=== PATIENT | female | born 2000 | race Caucasian/White ===

== ENCOUNTER → 2019-12-19 14:51 | Outpatient (CLI) | payer BC, SELFPAY ==
--- NOTE | 2019-12-19 15:00 | US_ITS ---
PROCEDURE: US TRANSVAGINAL CLINICAL INDICATION: pelvic pain COMPARISON: ABDPELW/O CT ABD PELVIS W/O CONTRAST from 11/21/2014 FINDINGS: UTERUS: 7cm x 4cmx 3cm with a combined endometrial thickness of 2.3mm LEFT OVARY: [id number] with a volume of 2.6ml. RIGHT OVARY: [id number] with a volume of 5.9ml. Uterus has an unremarkable appearance. There is a 3.4 cm cystic lesion within the cul-de-sac. There does appear to be a small amount fluid in the cul-de-sac. IMPRESSION: 3.4 cm cystic lesion within the posterior cul-de-sac. This does not appear to be arising from ovary. MRI of the pelvis without and with gadolinium enhancement suggested for further evaluation. Dictated by: Quincy Llanos MD 12/19/2019 16:10 Electronically signed by Quincy Llanos MD in [place] 12/19/2019 16:10
== END ==
PROVIDERS: PCP Specialist; Visit Provider Nurse Practitioner Obstetrics & Gynecology
DX: R10.2 Pelvic and perineal pain (principal)
CPT/HCPCS: 76830

== ENCOUNTER → 2020-02-20 12:47 | Outpatient (CLI) | payer BC, SELFPAY ==
--- NOTE | 2020-02-20 12:48 | US_ITS ---
PROCEDURE: US TRANSVAGINAL CLINICAL INDICATION: ovarian cyst Follow-up ovarian cyst COMPARISON: CT ABDPELW/O CT ABD PELVIS W/O CONTRAST from 11/21/2014 US US TRANSVAGINAL from 12/19/2019 FINDINGS: UTERUS: 5cm x 4cmx 3cm with a combined endometrial thickness of 1.7mm LEFT OVARY: 3qiv3cjm9.5cm with a volume of 4.9ml. RIGHT OVARY: [id number] with a volume of 3.7ml. There is free fluid in the cul-de-sac. In addition, there is a persistent circumscribed simple cystic collection in the cul-de-sac at 3.4 x 2.7 cm not significantly changed. The ovaries have an unremarkable appearance with bilateral ovarian blood flow. IMPRESSION: Overall no change in the 3.4 cm simple appearing cyst in the cul-de-sac along with a small amount of free fluid in the cul-de-sac. Dictated by: Quincy Llanos MD 02/20/2020 18:02 Quincy Llanos MD in [place] 02/20/2020 18:02
== END ==
PROVIDERS: PCP Specialist; Visit Provider Nurse Practitioner Obstetrics & Gynecology
DX: N83.209 Unspecified ovarian cyst, unspecified side (principal)
CPT/HCPCS: 76830

== ENCOUNTER 2020-03-23 13:22 | Emergency (ER) | payer BC, SELFPAY ==
[2020-03-23 14:15] VITALS: BP 125/78; PULSE 91; RESP 18; TEMP 36.7; O2SAT 96; BMI 31.8
--- NOTE | 2020-03-23 14:24 | HMH.EDUTC ---
[facility] [place] Clinical Impression: Exposure to COVID-19 virus, Encounter for laboratory testing for COVID-19 virus Disposition: Home, Self-Care Condition on Discharge: Good Instructions: Preventing the Spread of Coronavirus Discharge Instructions Additional Instructions: *Monitor Temp, Over the counter Motrin or Tylenol as directed/as needed Tylenol every 4 hours and Motrin every 6 hours (as long as your family doctor has told you that you can take it) for fever or pain. and straight to ER if unable to lower temp less than 101.0 after medication given *Warm salt water gargles may help to soothe the throat *Throat Lozenges *Warm fluids like tea with honey may help to soothe the throat *Sleep elevated *Humidifier/Vaporizer Follow up IMMEDIATELY for new or worsening symptoms or no Noticeable improvement over the next 48-72 hours. 911 for difficulty breathing or swallowing You was tested for today for COVID19 your test result should be back later this evening, you may call back later this evening to see if your test results are back and the result You was given a handout with instructions for Self Quarantine and Self isolation for while you wait on test results and what to do if they are positive Referrals: David Bragg [Primary Care Provider] - As needed Time of Disposition: 14:27 Medical Decision Making - Jeremy Inquiry Pt receiving controlled substance: No Jeremy was queried for this patient: No Vital Signs: 03/23/20 14:15 Temperature 98.1 F Temperature Source Oral Pulse Rate [Radial] 91 H Respiratory Rate 18 Blood Pressure [Right Arm] 125/78 Blood Pressure Mean [Right Arm] 93 Blood Pressure Source [Right Arm] Automatic Cuff Blood Pressure Position [Right Arm] Sitting 02 Sat by Pulse Oximetry 96 Oxygen Delivery Method Room Air Orders (Tests/Meds): ORDERS Category Date Time Status Covid-19 Nasal PCR ([facility]) Routine Lab 03/23/20 13:45 Received [facility] [place] HPI - General Stated complaint: exposed to covid patient Time Seen by Provider: 03/23/20 14:24 Mode of Arrival: Ambulatory Source of Information: Patient Limitations: No Limitations Description of Symptoms (Recalled from Triage Doc. by RN): covid test, no symptoms HEENT Symptoms (Recalled from RN notes): No Resp Symptoms (Recalled from RN notes): No Skin Symptoms (Recalled from RN notes): No MS Symptoms (Recalled from RN notes): No Functional Status (Recalled from RN notes): wnl - History of Present Illness Provider Complaint: Patient states that she was recent exposed to someone that tested positive for COVID yesterday at her house States that she is not having any symptoms but wanted to get tested to be safe - Related Data Home Medications Medication Instructions Recorded Confirmed fluoxetine 20 mg capsule mg PO 06/26/19 12/14/19 norgestimate 0.25 mg-ethinyl tab PO 06/26/19 12/14/19 estradiol 35 mcg tablet sulfamethoxazole 800 1 tab PO tab 12/14/19 12/14/19 mg-trimethoprim 160 mg tablet Allergies Allergy/AdvReac Type Severity Reaction Status Date / Time No Known Allergies Allergy Verified 12/14/19 11:23 - Worker's Comp Is this a Worker's Comp case?: No [facility] History - Hepatitis A Screen Drug use history?: No High risk sexual behaviors?: No History of sexually transmitted infection?: No Currently employed?: No Childcare worker?: No Do you have indoor plumbing?: Yes Do you have electricity?: Yes Attestation statement:: This patient has been screened for Hepatitis A risk factors. I have reviewed the patient's past medical history: Yes Medical History: Reports:: Anxiety, Depression Other Surgeries: Yes: No Previous Surgery - Social History Smoking Status: Never smoker Alcohol Intake: never Substance Use Type: denies use Occupational Status: other Housing: house Household Members: family - Psychiatric History Pschychiatric History:: Reports:: Anxiety, Depression Family Hx:: Cancer, Diabetes, Hyp
[2020-03-23 14:41] VITALS: BP 125/78; PULSE 91; RESP 18; TEMP 36.7; O2SAT 96
== END 2020-03-23 14:42 | disposition home or self-care (01) ==
PROVIDERS: Emergency Provider Nurse Practitioner; PCP Specialist
DX: Z20.828 Contact with and (suspected) exposure to other viral communicable diseases (principal); F41.8 Other specified anxiety disorders
CPT/HCPCS: 99201; U0003

== ENCOUNTER → 2020-07-03 15:51 | Outpatient (CLI) | payer BC, SELFPAY ==
[2020-07-04 14:27] LABS: Basophils # 0.1 K/mm3 (0-0.2); Basophils % 0.8 % (0.1-2.0); Eosinophils # 0.2 K/mm3 (0.0-0.4); Eosinophils % 2.8 % (0.1-12.0); Hematocrit 43.2 % (37.0-47.0); Hemoglobin 14.1 g/dL (12.2-16.2); Lymphocytes # 1.7 K/mm3 (0.7-4.5); Lymphocytes % 26.7 % (10-50); Mean Corpuscular HGB Conc 32.6 g/dL (31.8-35.4); Mean Corpuscular Hemoglobin 29.9 pg (27.0-31.2); Mean Corpuscular Volume 91.9 fl (81-99); Mean Platelet Volume 8.9 fl (7.4-10.4); Monocytes # 0.2 K/mm3 (0.1-1.0); Monocytes % 2.9 % (1.7-9.3); Neutrophils # 4.4 K/mm3 (1.8-7.8); Neutrophils % 66.8 % (37.0-80.0); Platelet Count 404 K/mm3 (142-424); Red Blood Count 4.71 M/mm3 (4.20-5.40); Red Cell Distribution Width 13.7 % (11.5-17.5); White Blood Count 6.5 K/mm3 (4.5-13.0)
[2020-07-04 14:35] LABS: Chloride 103 mmol/L (98-107); Potassium 4.8 mmoL/L (3.5-5.1); Sodium 143 mmol/L (136-145)
[2020-07-04 14:37] LABS: Blood Urea Nitrogen 10 mg/dl (7-17); Estimated Glomerular Filt Rate 127 ml/min (>60); GFR (African American) 154 ML/MIN (>60)
[2020-07-04 14:38] LABS: Alanine Aminotransferase 22 U/L (12-78); Albumin Level 5.2 g/dl (3.5-5.0); Albumin/Globulin Ratio 1.5 (1.1-1.8); Alkaline Phosphatase 102 U/L (38-126); Anion Gap 15.8 mEq/L (5-15); Aspartate Amino Transferase 32 U/L (14-36); Bilirubin,Total 0.4 mg/dl (0.2-1.3); Calcium 10.2 mg/dl (8.4-10.2); Carbon Dioxide 29 mmol/L (22.0-30.0); Chol/HDL Ratio 4.8 (1-3.5); Cholesterol 191 mg/dl (140-200); Globulin 3.5 g/dL (1.3-3.2); Glucose 92 mg/dl (74-100); HDL Cholesterol 40 mg/dl (40-60); Total Protein,Serum 8.7 g/dl (6.3-8.2); Triglycerides 101 mg/dl (30-150); VLDL Cholesterol 20 mg/dL (0-40)
[2020-07-04 14:50] LABS: Direct LDL Cholesterol 100.52 mg/dL (100-129)
[2020-07-04 14:58] LABS: T4 (Thyroxine) 9.5 ug/dl (5.53-11.0)
[2020-07-04 15:09] LABS: Thyroid Stimulating Hormone 0.98 uIU/mL (0.465-4.68)
== END ==
PROVIDERS: Visit Provider Nurse Practitioner Family
DX: R53.83 Other fatigue (principal)
CPT/HCPCS: 80053; 80061; 84436; 84443; 85025

== ENCOUNTER → 2020-07-10 12:09 | Outpatient (CLI) | payer BC, SELFPAY ==
[2020-07-10 14:40] LABS: HCG Qualitative, Serum Negative (Negative)
[2020-07-10 15:28] LABS: Hemoglobin A1C 5.2 % (4.0-6.0)
== END ==
PROVIDERS: PCP Nurse Practitioner Family; Visit Provider Nurse Practitioner Family
DX: R42 Dizziness and giddiness (principal); R55 Syncope and collapse; R06.02 Shortness of breath
CPT/HCPCS: 36415; 83036; 84703; 93225; 93226

== ENCOUNTER → 2020-07-14 12:42 | Outpatient (CLI) | payer BC, SELFPAY ==
--- NOTE | 2020-07-14 12:43 | CA_ITS ---
APPROVED REPORT EXAM: Comprehensive 2D, Doppler, and color-flow Echocardiogram Commercial Collections Specialist: Luci Thomas RVT Ht: 5 ft 3 in Wt: 191lbs BSA: 1.90 BP: 118/86 mmHg Indications: SOA,COVID 2 WKS AGO 2D Dimensions LVOT 1.85 cm (M/F) 1.5-2.5 M-Mode Dimensions RVDd 2.11 cm (0.9-2.6) LA Diam 3.23 cm (1.9-4.0) LVDd 4.62 cm (3.5-5.7) Ao Diam 1.78 cm (2.0-3.7) LVDs 2.98 cm (3.5-5.7) IVSd 0.90 cm (0.6-1.1) PWd 0.60 cm (0.6-1.1) EF (Teich) 65.00% FS 35.50% EDV (Teich) 98.30 mL ESV (Teich) 34.40 mL LV Diastology E Decel Time 150.00 (160-240 msec) E/A Ratio 1.9 MED E' 14.30 (< 7 cm/sec) E'/MED E' Ratio 8.21 (>14) LAT E' 18.90 (<10 cm/sec) E/LAT E' Ratio 6.21 (>14) Mitral Valve MV E Max Ede. 117.00 (40-130 cm/s) MV A Velocity 61.00 (40-130 cm/s) E/A Ratio 1.92 MV Decel. Time 150.00 (160-240 ms) MV PHT 44.00 ms Pulmonary Valve PV Peak Velocity 96.00 (50-150 cm/s) Tricuspid Valve TR P. Velocity 218.00 cm/s RAP Estimate 10.00 mmHg RVSP 28.90 mmHg Left Ventricle Left atrium is normal size, left ventricle is normal size, there is no concentric left ventricular hypertrophy, visually estimated ejection fraction 55% with no regional wall motion abnormality, diastolic parameters are within normal range. Right Ventricle Right atrium and right ventricle are normal size and contractility. Aortic Valve Aortic valve is grossly normal, there is no aortic stenosis or aortic insufficiency. Mitral Valve Mitral valve is grossly normal, there is no mitral stenosis or mitral regurgitation. Tricuspid Valve Tricuspid valve grossly normal, there is trace tricuspid regurgitation, tricuspid regurgitation jet velocity is inadequate for calculation of the right ventricular systolic pressure. Pulmonic Valve Pulmonic valve is poorly visualized. Great Vessels Aortic root is normal size. Pericardium No significant pericardial effusion noted Conclusion 1. Normal left ventricular size, preserved left ventricular systolic function, visually estimated ejection fraction 55% with no regional wall motion abnormality, diastolic parameters are within normal range. 2. Trace mitral and tricuspid regurgitation. 3. No significant pericardial effusion noted. Electronically signed by : Toby Boswell, 07/15/2020 05:47:11
== END ==
PROVIDERS: PCP Nurse Practitioner Family; Visit Provider Nurse Practitioner Family
DX: R06.02 Shortness of breath (principal)
CPT/HCPCS: 93306

== ENCOUNTER → 2020-07-16 14:17 | Outpatient (CLI) | payer BC, SELFPAY ==
--- NOTE | 2020-07-16 14:21 | XR_ITS ---
PROCEDURE: XR CHEST 2V CLINICAL HISTORY: dyspnea/ recent covid infection 2020 COMPARISON: No exams were available for comparison FINDINGS: The cardiomediastinal silhouette and pulmonary vascularity are within normal limits. The lungs are clear without infiltrates, suspicious nodules, or pleural effusions. No acute bony abnormalities. IMPRESSION: No acute findings. Dictated by: Quincy Llanos MD 07/16/2020 16:37 Quincy Llanos MD in [place] 07/16/2020 16:37
== END ==
PROVIDERS: PCP Nurse Practitioner Family; Visit Provider Urology
DX: R06.00 Dyspnea, unspecified (principal); R55 Syncope and collapse
CPT/HCPCS: 71046; 93270

== ENCOUNTER → 2020-07-21 12:09 | Outpatient (CLI) | payer BC, SELFPAY ==
--- NOTE | 2020-07-21 12:10 | CA_ITS ---
APPROVED REPORT Exam: Exercise Treadmill Technologist: Lola Mcknight Ht: 5 ft 3 in Wt: 190 lbs BSA: 1.89 m2 HR: 90 bpm BP: 127/73 mmHg Indications: Shortness of Breath Medical History Medications: Escitalopram,,,,, Vistaril,,,,, Stress Test Details Test: Ion HR Resting HR: 88 bpm Max Heart Rate (APMHR): 200 bpm Max HR Achieved: 174 bpm Target HR (85% APMHR): 170 bpm % of APMHR: 87 Recovery HR: 100 bpm BP Resting BP: 127.0/73.0 mmHg Max BP: 158.0/80.0 mmHg Recovery BP: 130.0/68.0 mmHg ECG Clinical Exercise duration: 09:12 min Highest Stage Achieved: Exercise capacity: 10.1 METs Stress ECG Conclusion Symptoms: Shortness of air noted. No chest pain. Arrhythmias/Ectopy: None ST-T Changes: < 1.[address] segment changes. Normal Exercise Stress test. Test Summary REST . . . . . . . Sitting REST . . . . . . . Standing REST 11:19 0.0 0.0 88 . 127/ 73 . . Stage 1 01:00 10.0 1.7 107 . . . . Stage 1 02:00 10.0 1.7 118 . . . . Stage 1 03:00 10.0 1.7 117 . 138/ 70 . . Stage 2 . . . . . . . Shortness of Breath Stage 2 01:00 12.0 2.5 132 . . . . Stage 2 02:00 12.0 2.5 134 . . . . Stage 2 03:00 12.0 2.5 135 . 140/ 74 . . Stage 3 01:00 14.0 3.4 154 . . . . Stage 3 02:00 14.0 3.4 163 . . . . Stage 3 03:00 14.0 3.4 169 . 152/ 80 . . Stage 4 00:12 16.0 4.2 172 . . . Stop exercise at 09:12 RECOVERY 01:00 0.0 0.0 155 . . . . RECOVERY 02:00 0.0 0.0 122 . 158/ 80 . . RECOVERY 03:00 0.0 0.0 109 . 126/ 72 . . RECOVERY 04:00 0.0 0.0 107 . 126/ 72 . . RECOVERY 05:00 0.0 0.0 88 . 130/ 68 . . RECOVERY 05:15 0.0 0.0 91 . 130/ 68 . . Electronically signed by : Toby Boswell, 07/21/2020 19:17:21
== END ==
PROVIDERS: PCP Nurse Practitioner Family; Visit Provider Urology
DX: R06.00 Dyspnea, unspecified (principal); R55 Syncope and collapse
CPT/HCPCS: 93017

== ENCOUNTER → 2020-07-25 09:32 | Outpatient (CLI) | payer BC, SELFPAY ==
--- NOTE | 2020-07-25 09:33 | US_ITS ---
PROCEDURE: US TRANSVAGINAL CLINICAL INDICATION: following a ovarian cyst this this COMPARISON: CT ABDPELW/O CT ABD PELVIS W/O CONTRAST from 11/21/2014 US US TRANSVAGINAL from 02/20/2020 FINDINGS: The uterus is retroverted and measures 6 x 4 x 4 cm with a combined endometrial thickness 5 mm. There is once again noted a simple appearing cyst in the right adnexal region measuring 3 by 2.6 cm adjacent to the right ovary. The right ovary measures 3.5 x 2 cm. Blood flow is present to the right and left ovary. The left ovary measures 2 x 1.7 cm and has an unremarkable appearance. No cul-de-sac fluid evident. IMPRESSION: No change in the 3 cm cyst in the right adnexal region contiguous with the right ovary presumed to represent an exophytic ovarian cyst. Dictated by: Quincy Llanos MD 07/26/2020 10:33 Quincy Llanos MD in [place] 07/26/2020 10:33
== END ==
PROVIDERS: PCP Nurse Practitioner Family; Visit Provider Nurse Practitioner Obstetrics & Gynecology
DX: N83.201 Unspecified ovarian cyst, right side (principal)
CPT/HCPCS: 76830

== ENCOUNTER → 2020-08-06 12:51 | Outpatient (CLI) | payer BC, SELFPAY | PROVIDERS: PCP Nurse Practitioner Family; Visit Provider Urology | DX: R00.2 Palpitations (principal) ==

== ENCOUNTER → 2020-08-08 14:36 | Outpatient (CLI) | payer BC, SELFPAY ==
[2020-08-08 19:44] LABS: Amphetamine/Metha Screen,Urine Negative ng/ml (<1000)
[2020-08-08 19:45] LABS: Barbiturates Screen,Urine Negative ng/ml (<200); Benzodiazepines Screen,Urine Negative ng/ml (<200)
[2020-08-08 19:46] LABS: Cannabinoid Screen,Urine Negative ng/ml (<50)
[2020-08-08 19:47] LABS: Cocaine Screen,Urine Negative ng/ml (<300)
[2020-08-08 19:48] LABS: Methadone Screen,Urine Negative ng/ml (<300); Opiate Screen,Urine Negative ng/ml (<300)
[2020-08-08 19:49] LABS: Phencyclidine Screen,Urine Negative ng/ml (<25)
== END ==
PROVIDERS: Visit Provider Nurse Practitioner Family
DX: Z02.1 Encounter for pre-employment examination (principal)
CPT/HCPCS: 80305

== ENCOUNTER → 2020-09-19 11:18 | Outpatient (CLI) | payer BC, SELFPAY ==
[2020-09-19 11:45] LABS: Basophils # 0.1 K/mm3 (0-0.2); Basophils % 0.6 % (0.1-2.0); Eosinophils # 0.4 K/mm3 (0.0-0.4); Eosinophils % 5.4 % (0.1-12.0); Hematocrit 39.5 % (37.0-47.0); Lymphocytes # 1.5 K/mm3 (0.7-4.5); Lymphocytes % 19.8 % (10-50); Mean Corpuscular HGB Conc 32.9 g/dL (31.8-35.4); Mean Corpuscular Hemoglobin 28.6 pg (27.0-31.2); Mean Corpuscular Volume 86.7 fl (81-99); Mean Platelet Volume 7.1 fl (7.4-10.4); Monocytes # 0.2 K/mm3 (0.1-1.0); Monocytes % 2.8 % (1.7-9.3); Neutrophils # 5.6 K/mm3 (1.8-7.8); Neutrophils % 71.3 % (37.0-80.0); Platelet Count 378 K/mm3 (142-424); Red Blood Count 4.55 M/mm3 (4.20-5.40); Red Cell Distribution Width 13.6 % (11.5-17.5); White Blood Count 7.8 K/mm3 (4.5-13.0)
[2020-09-19 12:09] LABS: Chloride 105 mmol/L (98-107)
[2020-09-19 12:10] LABS: Potassium 4.4 mmoL/L (3.5-5.1); Sodium 142 mmol/L (136-145)
[2020-09-19 12:12] LABS: Alanine Aminotransferase 17 U/L (12-78); Alkaline Phosphatase 90 U/L (38-126); Anion Gap 12.4 mEq/L (5-15); Aspartate Amino Transferase 29 U/L (14-36); Bilirubin,Total 0.5 mg/dl (0.2-1.3); Blood Urea Nitrogen 14 mg/dl (7-17); Carbon Dioxide 29 mmol/L (22.0-30.0); Estimated Glomerular Filt Rate 107 ml/min (>60); GFR (African American) 129 ML/MIN (>60)
[2020-09-19 12:13] LABS: Albumin Level 5.2 g/dl (3.5-5.0); Albumin/Globulin Ratio 1.7 (1.1-1.8); Calcium 9.7 mg/dl (8.4-10.2); Chol/HDL Ratio 3.6 (1-3.5); Cholesterol 174 mg/dl (140-200); Glucose 90 mg/dl (74-100); HDL Cholesterol 48 mg/dl (40-60); Iron 65 ug/dL (37-170); Total Protein,Serum 8.2 g/dl (6.3-8.2); Triglycerides 82 mg/dl (30-150); VLDL Cholesterol 16 mg/dL (0-40)
[2020-09-19 12:23] LABS: Total Iron Binding Capacity 452 ug/dL (265-497)
[2020-09-19 12:24] LABS: Direct LDL Cholesterol 86.62 mg/dL (100-129)
[2020-09-19 12:34] LABS: Free Thyroxine Index 2.3 ug/dL (5.93-13.13); T4 (Thyroxine) 7.8 ug/dl (5.53-11.0); Triiodothryronine (T3) Uptake 29 % (23.5-40.5)
[2020-09-19 12:47] LABS: Thyroid Stimulating Hormone 1.26 uIU/mL (0.465-4.68)
[2020-09-19 13:02] LABS: Vitamin B12 479 pg/mL (239-931)
[2020-09-19 13:21] LABS: Hemoglobin A1C 5.2 % (4.0-6.0)
[2020-09-26 17:02] LABS: 1,25 Dihydroxy Vitamin D 85 pg/mL (.); 1,25-Dihydroxy, Vitamin D-2 <10 pg/mL (.); 1,25-Dihydroxy, Vitamin D-3 85 pg/mL (.)
== END ==
PROVIDERS: Visit Provider Nurse Practitioner Psychiatric/Mental Health
DX: Z00.00 Encounter for general adult medical examination without abnormal findings (principal); Z79.899 Other long term (current) drug therapy
CPT/HCPCS: 36415; 80053; 80061; 82607; 82652; 83036; 83540; 83550; 84436; 84443; 84479; 85025

== ENCOUNTER → 2021-05-07 08:42 | Outpatient (CLI) | payer BC, SELFPAY ==
--- NOTE | 2021-05-07 08:48 | US_ITS ---
PROCEDURE: US TRANSVAGINAL CLINICAL INDICATION: following up to ovarian csyst COMPARISON: US US TRANSVAGINAL from 07/25/2020 FINDINGS: UTERUS: 8cm x 5cmx 3cm with a combined endometrial thickness of 6.9mm LEFT OVARY: 5oij7akb6.5cm with a volume of 6.1ml. RIGHT OVARY: [id number] with a volume of 10.1ml. There is a 2 cm simple right ovarian cyst. Bilateral ovarian blood flow noted. There is a small amount fluid in the endocervical canal IMPRESSION: No acute finding. Small amount fluid in the endocervical canal. Previously there was an exophytic right ovarian cyst no longer apparent. A small 2 cm simple appearing cyst is present within the right ovary. Dictated by: Quincy Llanos MD 05/07/2021 17:31 Quincy Llanos MD in [place] 05/07/2021 17:31
== END ==
PROVIDERS: PCP Nurse Practitioner Family; Visit Provider Nurse Practitioner Obstetrics & Gynecology
DX: N83.209 Unspecified ovarian cyst, unspecified side (principal)
CPT/HCPCS: 76830

== ENCOUNTER → 2021-05-21 13:45 | Outpatient (CLI) | payer BC, SELFPAY ==
[2021-05-21 15:48] LABS: HCG,Quantitative 73 mIU/ml (0-5.42)
== END ==
PROVIDERS: Visit Provider Nurse Practitioner Obstetrics & Gynecology
DX: N92.6 Irregular menstruation, unspecified (principal)
CPT/HCPCS: 36415; 84702

== ENCOUNTER → 2021-05-25 13:33 | Outpatient (CLI) | payer BC, SELFPAY ==
[2021-05-25 15:05] LABS: HCG,Quantitative 588 mIU/ml (0-5.42)
== END ==
PROVIDERS: Visit Provider Nurse Practitioner Obstetrics & Gynecology
DX: N92.6 Irregular menstruation, unspecified (principal)
CPT/HCPCS: 36415; 84702

== ENCOUNTER → 2021-05-25 13:45 | Outpatient (CLI) | payer BC, SELFPAY | PROVIDERS: PCP Nurse Practitioner Family; Visit Provider Nurse Practitioner | DX: U07.1 COVID-19 (principal) | CPT/HCPCS: C9803; U0003; U0005 ==

== ENCOUNTER 2021-06-12 21:38 | Emergency (ER) | payer BC, SELFPAY ==
[2021-06-12 21:38] VITALS: BP 130/83; PULSE 91; RESP 18; TEMP 36.6; O2SAT 99; BMI 31.6
[2021-06-12 21:49] VITALS: BMI 31.6
[2021-06-12 22:13] LABS: Microscopic, Urine URINE MICROSCOPIC (MICROSCOPIC)
[2021-06-12 22:13] LABS: Basophils # 0.1 K/mm3 (0-0.2); Basophils % 1.2 % (0.1-2.0); Eosinophils # 0.3 K/mm3 (0.0-0.4); Eosinophils % 2.9 % (0.1-12.0); Hematocrit 36.2 % (37.0-47.0); Hemoglobin 11.8 g/dL (12.2-16.2); Lymphocytes # 1.8 K/mm3 (0.7-4.5); Lymphocytes % 20.1 % (10-50); Mean Corpuscular HGB Conc 32.5 g/dL (31.8-35.4); Mean Corpuscular Volume 89.3 fl (81-99); Mean Platelet Volume 7.4 fl (7.4-10.4); Monocytes # 0.4 K/mm3 (0.1-1.0); Monocytes % 3.9 % (1.7-9.3); Neutrophils # 6.6 K/mm3 (1.8-7.8); Neutrophils % 71.9 % (37.0-80.0); Platelet Count 372 K/mm3 (142-424); Red Blood Count 4.05 M/mm3 (4.20-5.40); Red Cell Distribution Width 13.4 % (11.5-17.5); White Blood Count 9.2 K/mm3 (4.8-10.8)
[2021-06-12 22:14] LABS: Appearance,Urine CLEAR (Clear); Bilirubin,Urine Negative (Negative); Blood, Urine Negative (Negative); Color,Urine YELLOW (Yellow); Glucose,Urine (UA) Negative (Negative); Ketones,Urine Negative (Negative); Leukocyte Esterase,Urine 1+ (Negative); Nitrate,Urine Negative (Negative); PH,Urine 6.5 (5.0-8.5); Protein,Urine Negative (Negative); Specific Gravity, Urine 1.015 (1.005-1.030); Urobilinogen,Urine 0.2 EU/dl (0.2)
[2021-06-12 22:18] LABS: Urine Pregnancy, HCG Qual. Positive (Negative)
[2021-06-12 22:22] LABS: Alanine Aminotransferase 17 U/L (12-78); Albumin Level 4.6 g/dl (3.5-5.0); Albumin/Globulin Ratio 1.6 (1.1-1.8); Alkaline Phosphatase 71 U/L (38-126); Anion Gap 11.9 mEq/L (5-15); Aspartate Amino Transferase 26 U/L (14-36); Bilirubin,Total 0.3 mg/dl (0.2-1.3); Blood Urea Nitrogen 11 mg/dl (7-17); Calcium 9.6 mg/dl (8.4-10.2); Carbon Dioxide 28 mmol/L (22.0-30.0); Chloride 100 mmol/L (98-107); Creatinine Clearance Estimated 163 mL/min (50-200); Estimated Glomerular Filt Rate 106 ml/min (>60); GFR (African American) 128 ML/MIN (>60); Globulin 2.9 g/dL (1.3-3.2); Glucose 85 mg/dl (74-100); Potassium 3.9 mmoL/L (3.5-5.1); Sodium 136 mmol/L (136-145); Total Protein,Serum 7.5 g/dl (6.3-8.2)
--- NOTE | 2021-06-12 23:02 | US_ITS ---
PROCEDURE INFORMATION: Exam: US , Transvaginal Exam date and time: 06/12/2021 11:02 PM Age: 20 years old Clinical indication: complicated by abdominal or pelvic pain; Periumbilical; First trimester (<14 weeks 0 days); Gestational age or lmp: Lmp 04/25/2021; Patient HX: Past HX of ovarian cysts. Pain lower pelvis. ; Additional info: Cramping TECHNIQUE: Imaging protocol: Real-time transvaginal obstetrical ultrasound of the maternal pelvis with image documentation. Transvaginal imaging was used for better evaluation of the fetus, adnexa, and/or cervix. COMPARISON: US TRANSVAGINAL 05/07/2021 8:58 AM FINDINGS: Gestation: Single intrauterine gestation. heart rate: Heart rate of 151 bpm. BIOMETRY: Gestational age (AUA): [place]-rump length compatible gestational age of 6 weeks and 6 days. MATERNAL: Right ovary/adnexa: 3.0 x 2.7 cm right ovarian cyst. Left ovary/adnexa: Left ovary is unremarkable. Intraperitoneal space: Small free fluid. IMPRESSION: 1. Single viable intrauterine gestation. 2. 3.0 x 2.7 cm right ovarian cyst.
--- NOTE | 2021-06-12 23:09 | HMH.EDNVD ---
ED Disposition Clinical Impression: Qualifiers: Weeks of gestation: less than 8 weeks Qualified Code(s): Z3A.01 - Less than 8 weeks gestation of Disposition: Home, Self-Care Condition on Discharge: Good Instructions: DI for -- Discomforts and Remedies Additional Instructions: see your ob Referrals: Dilcia Quinonez APRN [Primary Care Provider] - - Critical Care Critical Care Time: No Attestation: On 06/12/21, the high probability of a clinically significant, sudden or life threatening deterioration of the following system(s) required my full and direct attention, intervention and personal management. The time I documented below is in addition to time spent performing reported procedures but includes the following listed in this critical care notation. Medical Decision Making - Medical Records Medical records reviewed: Yes: I reviewed the patient's medical records. - Jeremy Inquiry Pt receiving controlled substance: No Vital Signs: 06/12/21 21:38 Temperature 97.8 F Temperature Source Oral Pulse Rate [Right] 91 H Respiratory Rate 18 Blood Pressure [Right Arm] 130/83 Blood Pressure Mean [Right Arm] 98 02 Sat by Pulse Oximetry 99 - Lab Data Lab results reviewed: Yes: I reviewed the patient's lab results. Lab Results 06/12/21 21:43: Urine Color Yellow, Urine Appearance Clear, Urine pH 6.5, Ur Specific [place] 1.015, Urine Protein Negative, Urine Glucose (UA) Negative, Urine Ketones Negative, Urine Blood Negative, Urine Nitrate Negative, Urine Bilirubin Negative, Urine Urobilinogen 0.2, Ur Leukocyte Esterase 1+ A, Urine WBC 10-20, Ur Squamous Epith Cells 10-20 06/12/21 21:43: Urine HCG, Qual Positive 06/12/21 22:05: WBC 9.2, RBC 4.05 L, Hgb 11.8 L, Hct 36.2 L, MCV 89.3, MCH 29.0, MCHC 32.5, RDW 13.4, Plt Count 372, MPV 7.4, Neut % (Auto) 71.9, Lymph % (Auto) 20.1, [place] % (Auto) 3.9, Eos % (Auto) 2.9, Baso % (Auto) 1.2, Neut # (Auto) 6.6, Lymph # (Auto) 1.8, [place] # (Auto) 0.4, Eos # (Auto) 0.3, Baso # (Auto) 0.1 06/12/21 22:05: Sodium 136, Potassium 3.9, Chloride 100, Carbon Dioxide 28, Anion Gap 11.9, BUN 11, Creatinine 0.70, Estimated Creat Clear 163, Estimated GFR 106, Est GFR ( Amer) 128, Glucose 85, Calcium 9.6, Total Bilirubin 0.3, AST 26, ALT 17, Alkaline Phosphatase 71, Total Protein 7.5, Albumin 4.6, Globulin 2.9, Albumin/Globulin Ratio 1.6, HCG, Quant [id number] H Result diagrams: 06/12/21 22:05 06/12/21 22:05 Orders (Tests/Meds): ED MEDICATIONS Discontinued Medications Generic Name Dose Route Start Last Admin Trade Name Freq PRN Reason Stop Dose Admin Sodium Chloride 1,000 mls @ 999 mls/hr 06/12/21 22:00 06/12/21 22:20 Sod Chlor 0.9% 1000ml Bag IV 06/12/21 23:00 999 mls/hr .Q1H1M SARAH Administration ORDERS Category Date Time Status Urine Culture Stat Micro 06/12/21 21:43 Received US OB transvaginal Stat Ultrasound 06/12/21 23:02 Taken - US Data US Images: Pelvis ED US Reviewed: Yes: I have viewed radiologist's interpretation Preliminary Findings: Normal/NAD (iup) Medical Decision Narrative: pt with iup with fht and has ovarian cyst Nausea/Vomiting/Diarrhea HPI - General Chief complaint: Abdominal Pain Stated complaint: 7-8 wks , stomach pains Time Seen by Provider: 06/12/21 23:09 Mode of Arrival: Ambulatory Source of Information: Patient, Medical Record Limitations: No Limitations Description of Symptoms (Recalled from ER Triage Doc. by RN): pt states she 7-8 weeks . pt c/o abd cramping x 2 days denies any n/v or bleeding - History of Present Illness HPI Narrative: lower pelvic pain w/o bleeding and is early MD complaint: other (pelvic pain) Onset (ago): day(s) Associated Abdominal Pain: Yes Location of pain: other (pelvis) Severity: moderate Associated symptoms: denies other symptoms - Related Data Home Medications Medication Instructions Recorded Confirmed Buspirone HCl [Bu
[2021-06-13 00:08] VITALS: BP 119/75; PULSE 90; RESP 20; TEMP 36.6; O2SAT 99
== END 2021-06-13 00:10 | disposition home or self-care (01) ==
PROVIDERS: Emergency Provider Emergency Medicine; PCP Nurse Practitioner Family
DX: O20.9 Hemorrhage in early pregnancy, unspecified (principal); Z3A.08 8 weeks gestation of pregnancy; F41.8 Other specified anxiety disorders
CPT/HCPCS: 76817; 80053; 81001; 81025; 84702; 85025; 87086; 96365; 99283

== ENCOUNTER → 2021-06-17 10:29 | Outpatient (CLI) | payer BC, SELFPAY ==
--- NOTE | 2021-06-17 10:30 | US_ITS ---
PROCEDURE: US OB <= 14 WEEKS FETUS CLINICAL INDICATION: dates COMPARISON: CT ABDPELW/O CT ABD PELVIS W/O CONTRAST from 11/21/2014 US US TRANSVAGINAL from 02/20/2020 US US TRANSVAGINAL from 07/25/2020 US US OB TRANSVAGINAL from 06/12/2021 FINDINGS: An intrauterine gestational sac is present with a pole with a crown-rump length of 1.49cm correlating to gestational age of 7weeks 6days. heart tones are present with an FHR of 151bpm. Yolk sac is noted. A cystic collection is once again noted in the pelvis measuring 3.7 x 3.1 cm. This is of uncertain etiology as it does not appear to be connected to the ovary. Some of this may also be due to free fluid.. IMPRESSION: Live IUP at 7 weeks 6 days. Estimated due date by Ultrasound is 01/28/2022. Persistent cystic fluid collection in the pelvis etiology indeterminate. Dictated by: Quincy Llanos MD 06/17/2021 15:36 Quincy Llanos MD in [place] 06/17/2021 15:36
== END ==
PROVIDERS: PCP Nurse Practitioner Family; Visit Provider Obstetrics & Gynecology
DX: Z34.90 Encounter for supervision of normal pregnancy, unspecified, unspecified trimester (principal)
CPT/HCPCS: 76801

== ENCOUNTER → 2021-06-19 12:17 | Outpatient (CLI) | payer BC, MEDICAID, SELFPAY ==
[2021-06-19 13:03] LABS: Basophils # 0.1 K/mm3 (0-0.2); Basophils % 0.7 % (0.1-2.0); Eosinophils # 0.1 K/mm3 (0.0-0.4); Eosinophils % 1.3 % (0.1-12.0); Hematocrit 35.5 % (37.0-47.0); Hemoglobin 11.8 g/dL (12.2-16.2); Lymphocytes # 1.1 K/mm3 (0.7-4.5); Lymphocytes % 12.2 % (10-50); Mean Corpuscular HGB Conc 33.2 g/dL (31.8-35.4); Mean Corpuscular Hemoglobin 29.5 pg (27.0-31.2); Mean Corpuscular Volume 88.8 fl (81-99); Mean Platelet Volume 7.3 fl (7.4-10.4); Monocytes # 0.2 K/mm3 (0.1-1.0); Monocytes % 2.8 % (1.7-9.3); Neutrophils # 7.1 K/mm3 (1.8-7.8); Neutrophils % 82.9 % (37.0-80.0); Platelet Count 365 K/mm3 (142-424); Red Blood Count 3.99 M/mm3 (4.20-5.40); Red Cell Distribution Width 13.7 % (11.5-17.5); White Blood Count 8.6 K/mm3 (4.8-10.8)
[2021-06-21 08:52] LABS: HIV Screen 4th Generation wRfx Non Reactive (Non Reactive); Hepatitis B Surface Antigen Negative (Negative); Hepatitis C Antibody <0.1 s/co ratio (0.0-0.9)
[2021-06-21 09:17] LABS: Rubella Antibodies, IgG 4.39 index (Immune >0.99)
[2021-06-21 10:13] LABS: Rapid Plasma Reagin Ab Titer Non Reactive (NonRea<1:1)
== END ==
PROVIDERS: Visit Provider Obstetrics & Gynecology
DX: Z34.90 Encounter for supervision of normal pregnancy, unspecified, unspecified trimester (principal)
CPT/HCPCS: 85025; 86592; 86703; 86762; 86850; 87340; 87380; G0432

== ENCOUNTER → 2021-09-14 08:27 | Outpatient (CLI) | payer BC, MEDICAID, SELFPAY ==
--- NOTE | 2021-09-14 08:31 | US_ITS ---
FINAL REPORT CLINICAL HISTORY: Anatomy, OB Complete FINDINGS: There is a single live intrauterine gestation. Presentation is cephalic. Placenta is anterior, high. movement is noted. Heart rate is measured at 140 beats per minute. Three-vessel cord with satisfactory umbilical cord insertion. Four-chamber heart is noted. brain and ventricles are unremarkable. Chest and diaphragm are unremarkable. ABDOMEN: Both kidneys are unremarkable. Stomach is unremarkable. SPINE: No anomalies identified. Both arms and legs noted. AMNIOTIC FLUID: Appropriate amount. MEASUREMENTS: ULTRASOUND AGE: 20 weeks 6 days. GESTATION AGE: 20 weeks 4 days. ESTIMATED WEIGHT: 377 g GROWTH PERCENTILE: 57 % BPD: 5 cm corresponding with 21 weeks 1 day. OFD: 6.5 cm corresponding with 21 weeks 4 days. HC: 18.2 cm corresponding with 20 weeks 5 days. AC: 16 cm corresponding with 21 weeks 1 day. FL: 3.3 cm corresponding with 20 weeks 3 days. CEREBELLUM: 2.1 cm corresponding with 21 weeks 1 day. HUMERUS: 3.4 cm corresponding with 21 weeks 3 days. NUCH FOLD: 1.8 MM HC/AC: 1.14 CI: 77% FL/BPD: 67% FL/AC: 21% IMPRESSION: Single living IUP with an ultrasound age of 20 WEEKS 6 days. Reviewed, Interpreted and Dictated by Bryson Dalal III, MD Transcribed by Keisha Sandoval Authenticated by Bryson Dalal III, MD on 09/14/2021 11:17:24 AM [facility]
== END ==
PROVIDERS: PCP Nurse Practitioner Family; Visit Provider Obstetrics & Gynecology
DX: Z34.90 Encounter for supervision of normal pregnancy, unspecified, unspecified trimester (principal)
CPT/HCPCS: 76805

== ENCOUNTER → 2021-09-23 08:58 | Outpatient (CLI) | payer BC, MEDICAID, SELFPAY ==
[2021-09-23 09:39] LABS: Glucose,Fasting 77 mg/dl (74-100)
[2021-09-23 11:04] LABS: Glucose 1 Hour 130 mg/dL (74-100)
[2021-09-23 12:36] LABS: Hemoglobin A1C 4.7 % (4.0-6.0)
[2021-09-23 13:48] LABS: Glucose 2 Hour 106 mg/dL (74-100)
[2021-09-23 15:07] LABS: Glucose 3 Hour 113 mg/dL (74-100)
== END ==
PROVIDERS: Visit Provider Nurse Practitioner Family
DX: E16.2 Hypoglycemia, unspecified (principal)
CPT/HCPCS: 36415; 82951; 83036

== ENCOUNTER 2021-09-29 13:09 | Outpatient (CLI) | payer BC, MEDICAID, SELFPAY ==
[2021-09-29 13:30] VITALS: BP 125/61; PULSE 86; RESP 18; TEMP 37.6; O2SAT 97; BMI 27.1
== END 2021-09-29 13:45 | disposition still patient (30) ==
LOC: OBOUT 13:10 → OB 13:11
PROVIDERS: PCP Nurse Practitioner Family; Visit Provider Obstetrics & Gynecology
DX: Z34.90 Encounter for supervision of normal pregnancy, unspecified, unspecified trimester (principal); Z3A.22 22 weeks gestation of pregnancy

== ENCOUNTER 2021-09-29 13:44 | Emergency (ER) | payer BC, MEDICAID, SELFPAY ==
--- NOTE | 2021-09-29 13:52 | HMH.EDGENADL ---
ED Disposition Clinical Impression: Near syncope Qualifiers: Weeks of gestation: 22 weeks Qualified Code(s): Z3A.22 - 22 weeks gestation of Disposition: Home, Self-Care Condition on Discharge: Good Instructions: Fainting Additional Instructions: follow up PCP return here for worse Referrals: Dilcia Quinonez APRN [Primary Care Provider] - - Critical Care Critical Care Time: No Attestation: On 09/29/21, the high probability of a clinically significant, sudden or life threatening deterioration of the following system(s) required my full and direct attention, intervention and personal management. The time I documented below is in addition to time spent performing reported procedures but includes the following listed in this critical care notation. Medical Decision Making - Medical Records Medical records reviewed: Yes: I reviewed the patient's medical records. - Jeremy Inquiry Pt receiving controlled substance: No Vital Signs: 09/29/21 13:54 09/29/21 14:29 09/29/21 14:30 Temperature 98.0 F Temperature Source Oral Pulse Rate 83 82 Pulse Rate [Orthostatic Lying Right Brachial] Pulse Rate [Orthostatic Sitting Right Brachial] Pulse Rate [Orthostatic Standing Right Brachial] Pulse Rate [Right Brachial] 88 Respiratory Rate 18 Blood Pressure 110/68 117/67 Blood Pressure [Orthostatic Lying Right Arm] Blood Pressure [Orthostatic Sitting Right Arm] Blood Pressure [Orthostatic Standing Right Arm] Blood Pressure [Right Arm] 120/64 Blood Pressure Mean [Right Arm] 82 Blood Pressure Source [Right Arm] Automatic Cuff Blood Pressure Position [Right Arm] Sitting 02 Sat by Pulse Oximetry 99 98 99 Oxygen Delivery Method Room Air 09/29/21 14:31 09/29/21 14:42 Temperature Temperature Source Pulse Rate 80 Pulse Rate [Orthostatic Lying Right Brachial] 74 Pulse Rate [Orthostatic Sitting Right Brachial] 110 H Pulse Rate [Orthostatic Standing Right Brachial] 80 Pulse Rate [Right Brachial] Respiratory Rate Blood Pressure 100/69 L Blood Pressure [Orthostatic Lying Right Arm] 110/68 Blood Pressure [Orthostatic Sitting Right Arm] 117/68 Blood Pressure [Orthostatic Standing Right Arm] 110/69 Blood Pressure [Right Arm] Blood Pressure Mean [Right Arm] Blood Pressure Source [Right Arm] Blood Pressure Position [Right Arm] 02 Sat by Pulse Oximetry 97 Oxygen Delivery Method - Lab Data Lab Results 09/29/21 13:55: WBC 10.4, RBC 3.64 L, Hgb 10.9 L, Hct 33.1 L, MCV 90.9, MCH 29.8, MCHC 32.8, RDW 13.9, Plt Count 329, MPV 7.3 L, Neut % (Auto) 87.7 H, Lymph % (Auto) 9.3 L, [place] % (Auto) 2.0, Eos % (Auto) 0.8, Baso % (Auto) 0.2, Neut # (Auto) 9.1 H, Lymph # (Auto) 1.0, [place] # (Auto) 0.2, Eos # (Auto) 0.1, Baso # (Auto) 0.0, Total Counted 100, Neutrophils % (Manual) 87 H, Lymphocytes % (Manual) 9 L, Monocytes % (Manual) 4, Platelet Estimate Normal, RBC Morphology Normal 09/29/21 13:55: Sodium 135 L, Potassium 3.8, Chloride 105, Carbon Dioxide 24, Anion Gap 9.8, BUN 7, Creatinine 0.40 L, Estimated Creat Clear 277, Estimated GFR 201, Est GFR ( Amer) 244, Glucose 80, Calcium 8.7, Total Bilirubin 0.4, AST 22, ALT 13, Alkaline Phosphatase 93, Total Protein 6.7, Albumin 3.9, Globulin 2.8, Albumin/Globulin Ratio 1.4 09/29/21 14:39: POC Glucose 75 Result diagrams: 09/29/21 13:55 09/29/21 13:55 Orders (Tests/Meds): ED MEDICATIONS Generic Name Dose Route Start Last Admin Trade Name Freq PRN Reason Stop Dose Admin Sodium Chloride 1,000 mls @ 999 mls/hr 09/29/21 14:45 09/29/21 14:35 Sod Chlor 0.9% 1000ml Bag IV 09/29/21 15:45 999 mls/hr .Q1H1M SARAH Administration ORDERS Category Date Time Status ECG Request by /Vadim Stat Y 09/29/21 13:53 Ordered - ECG Data Tracing #1 I reviewed this ECG and interpreted as documented below: ekg by me nsr, qrs nml, no st elev Medical Decision Narrative: reeval, appears well asym
[2021-09-29 13:54] VITALS: BP 120/64; PULSE 88; RESP 18; TEMP 36.7; O2SAT 99; BMI 30.8
--- NOTE | 2021-09-29 13:59 | ECG_ITS ---
APPROVED REPORT Exam: Resting ECG HR:78 bpm ECG Measurements Heart Rate 78 AXES UT 139 P 23 QRSd 85 QRS 49 QT 381 T 34 QTc 414 Conclusion SINUS RHYTHM NORMAL ECG UNCONFIRMED REPORT Electronically signed by : Jose Alfredo Everett MD 10/01/2021 17:44:08
[2021-09-29 14:16] LABS: Basophils % 0.2 % (0.1-2.0); Eosinophils # 0.1 K/mm3 (0.0-0.4); Eosinophils % 0.8 % (0.1-12.0); Hematocrit 33.1 % (37.0-47.0); Hemoglobin 10.9 g/dL (12.2-16.2); Lymphocytes % 9.3 % (10-50); Mean Corpuscular HGB Conc 32.8 g/dL (31.8-35.4); Mean Corpuscular Hemoglobin 29.8 pg (27.0-31.2); Mean Corpuscular Volume 90.9 fl (81-99); Mean Platelet Volume 7.3 fl (7.4-10.4); Monocytes # 0.2 K/mm3 (0.1-1.0); Neutrophils # 9.1 K/mm3 (1.8-7.8); Neutrophils % 87.7 % (37.0-80.0); Platelet Count 329 K/mm3 (142-424); Red Blood Count 3.64 M/mm3 (4.20-5.40); Red Cell Distribution Width 13.9 % (11.5-17.5); White Blood Count 10.4 K/mm3 (4.8-10.8)
[2021-09-29 14:22] LABS: MANUAL DIFFERENTIAL MANUAL DIFFERENTIAL (MANUAL DIFF)
[2021-09-29 14:27] LABS: Alanine Aminotransferase 13 U/L (12-78); Albumin Level 3.9 g/dl (3.5-5.0); Albumin/Globulin Ratio 1.4 (1.1-1.8); Alkaline Phosphatase 93 U/L (38-126); Anion Gap 9.8 mEq/L (5-15); Aspartate Amino Transferase 22 U/L (14-36); Bilirubin,Total 0.4 mg/dl (0.2-1.3); Blood Urea Nitrogen 7 mg/dl (7-17); Calcium 8.7 mg/dl (8.4-10.2); Carbon Dioxide 24 mmol/L (22.0-30.0); Chloride 105 mmol/L (98-107); Creatinine Clearance Estimated 277 mL/min (50-200); Estimated Glomerular Filt Rate 201 ml/min (>60); GFR (African American) 244 ML/MIN (>60); Globulin 2.8 g/dL (1.3-3.2); Glucose 80 mg/dl (74-100); Potassium 3.8 mmoL/L (3.5-5.1); Sodium 135 mmol/L (136-145); Total Protein,Serum 6.7 g/dl (6.3-8.2)
[2021-09-29 14:29] VITALS: BP 110/68; PULSE 83; O2SAT 98
[2021-09-29 14:30] VITALS: BP 117/67; PULSE 82; O2SAT 99
[2021-09-29 14:31] VITALS: BP 100/69; PULSE 80; O2SAT 97
[2021-09-29 14:40] LABS: Lymphocytes % 9 % (10-50); Monocytes % 4 % (2-9); Neutrophils % 87 % (42-76); Total Cells Counted 100
[2021-09-29 14:41] LABS: Platelet Estimate Normal; RBC Morphology Normal
[2021-09-29 14:42] VITALS: BP 110/68; BP 110/69; BP 117/68; PULSE 110; PULSE 74; PULSE 80
[2021-09-29 14:47] LABS: POC Glucose,Bedside 75 (70-110)
[2021-09-29 15:29] VITALS: BP 105/67; PULSE 67; RESP 18; TEMP 36.7; O2SAT 100
== END 2021-09-29 15:31 | disposition home or self-care (01) ==
PROVIDERS: Emergency Provider Emergency Medicine; PCP Nurse Practitioner Family
DX: R55 Syncope and collapse (principal); Z3A.22 22 weeks gestation of pregnancy; F41.8 Other specified anxiety disorders; Z79.899 Other long term (current) drug therapy
CPT/HCPCS: 80053; 82962; 85007; 85025; 93005; 96360; 96365; 99284

== ENCOUNTER → 2022-01-07 06:32 | Outpatient (CLI) | payer BC, MEDICAID, SELFPAY | PROVIDERS: Visit Provider Obstetrics & Gynecology | DX: Z34.90 Encounter for supervision of normal pregnancy, unspecified, unspecified trimester (principal) | CPT/HCPCS: 86403 ==

== ENCOUNTER 2022-01-25 04:53 | Inpatient (IN) | payer BC, MEDICAID, SELFPAY ==
[2022-01-25 05:07] VITALS: BMI 36.6
[2022-01-25 05:36] LABS: Basophils # 0.1 K/mm3 (0-0.2); Basophils % 0.7 % (0.1-2.0); Coronavirus 19, PCR Not Detected (NotDetected); Eosinophils # 0.3 K/mm3 (0.0-0.4); Eosinophils % 2.6 % (0.1-12.0); Hematocrit 30.3 % (37.0-47.0); Hemoglobin 9.7 g/dL (12.2-16.2); Influenza A, PCR Not Detected (NotDetected); Influenza B, PCR Not Detected (NotDetected); Lymphocytes # 2.6 K/mm3 (0.7-4.5); Lymphocytes % 21.8 % (10-50); Mean Corpuscular Hemoglobin 27.2 pg (27.0-31.2); Mean Corpuscular Volume 85.2 fl (81-99); Mean Platelet Volume 8.8 fl (7.4-10.4); Microscopic, Urine URINE MICROSCOPIC (MICROSCOPIC); Monocytes # 0.5 K/mm3 (0.1-1.0); Monocytes % 4.1 % (1.7-9.3); Neutrophils # 8.5 K/mm3 (1.8-7.8); Neutrophils % 70.9 % (37.0-80.0); Platelet Count 322 K/mm3 (142-424); Red Blood Count 3.55 M/mm3 (4.20-5.40); Red Cell Distribution Width 15.8 % (11.5-17.5)
[2022-01-25 05:44] LABS: Appearance,Urine CLEAR (Clear); Bilirubin,Urine Negative (Negative); Blood, Urine Negative (Negative); Color,Urine YELLOW (Yellow); Glucose,Urine (UA) Negative (Negative); Ketones,Urine Negative (Negative); Leukocyte Esterase,Urine TRACE (Negative); Nitrate,Urine Negative (Negative); Protein,Urine Negative (Negative); Specific Gravity, Urine 1.015 (1.005-1.030); Urobilinogen,Urine 0.2 EU/dl (0.2)
[2022-01-25 05:48] LABS: Squamous Epithelial Cell,Urine 20-50 #/hpf (0-5)
[2022-01-25 05:59] LABS: Benzodiazepines Screen,Urine Negative ng/ml (<200)
[2022-01-25 06:00] LABS: Amphetamine/Metha Screen,Urine Negative ng/ml (<1000); Barbiturates Screen,Urine Negative ng/ml (<200)
[2022-01-25 06:01] LABS: Methadone Screen,Urine Negative ng/ml (<300)
[2022-01-25 06:02] LABS: Cannabinoid Screen,Urine Negative ng/ml (<50); Cocaine Screen,Urine Negative ng/ml (<300)
[2022-01-25 06:03] LABS: Opiate Screen,Urine Negative ng/ml (<300)
[2022-01-25 06:04] LABS: Phencyclidine Screen,Urine Negative ng/ml (<25)
--- NOTE | 2022-01-25 07:08 | HMH.PHAINT ---
MEDICATION RECONCILIATION COMPLETED ON PATIENT USING EXTERNAL FILL HISTORY FROM PHARMACY. -CRIS BROCK, LIATD
[2022-01-25 08:15] VITALS: BP 132/80; PULSE 84; RESP 19; TEMP 36.7; O2SAT 98; BMI 36.6
--- NOTE | 2022-01-25 08:51 | HMH.HP ---
*Admission Date: 01/25/22 *Chief complaint: Induction of labor *History of present illness: 21 yo G1 @ 39 4/7 admitted for induction of labor care at [facility]--Dr. De Dios Irregular contractions but no vaginal bleeding or leakage of fluid Favorable cervix 3cm and patient requested elective induction [facility] History I have reviewed the patient's past medical history: Yes Medical History: Reports:: Anxiety, Depression *Have you ever received a pneumonia vaccine?: No *Have you received a flu vaccine this season?: No Anesthesia experience/problems:: nac Other Surgeries: Yes: No Previous Surgery. No: Amputation: No Fractures: No - *Social History Smoking Status: Never smoker Alcohol Intake: never Alcohol Intake Frequency:: other Substance Use Type: denies use *Occupational Status:: employed Housing: house Household Members: family *Travel in the last 8 weeks: None - Psychiatric History Pschychiatric History:: Reports:: Anxiety, Depression Family Hx:: Cancer, Diabetes, Hypertension, Stroke, Thyroid Disorder Para: 0 Review of Systems - Review of Systems Review of systems:: pertinent systems reviewed and negative unless documented below - *Genitourinary Denies abnormal vaginal bleeding Meds Home Medications Medication Instructions Recorded Confirmed Type vits no.126-ferrous fum 1 tab PO DAILY tab 10/19/21 01/25/22 History 28 mg iron-folic acid 800 mcg tablet Omeprazole 20 mg PO DAILY 01/25/22 01/25/22 History Allergies Allergy/AdvReac Type Severity Reaction Status Date / Time No Known Allergies Allergy Verified 01/19/22 10:03 Exam Vital signs and Labs for Last 24 Hours: Temp Pulse Resp BP Pulse Ox 98.0 F 84 19 132/80 98 01/25/22 08:15 01/25/22 08:15 01/25/22 08:15 01/25/22 08:15 01/25/22 08:15 Laboratory Results - last 24 hr 01/25/22 05:30: WBC 12.0 H, RBC 3.55 L, Hgb 9.7 L, Hct 30.3 L, MCV 85.2, MCH 27.2, MCHC 32.0, RDW 15.8, Plt Count 322, MPV 8.8, Neut % (Auto) 70.9, Lymph % (Auto) 21.8, [place] % (Auto) 4.1, Eos % (Auto) 2.6, Baso % (Auto) 0.7, Neut # (Auto) 8.5 H, Lymph # (Auto) 2.6, [place] # (Auto) 0.5, Eos # (Auto) 0.3, Baso # (Auto) 0.1 01/25/22 05:30: Urine Color Yellow, Urine Appearance Clear, Urine pH 6.0, Ur Specific [place] 1.015, Urine Protein Negative, Urine Glucose (UA) Negative, Urine Ketones Negative, Urine Blood Negative, Urine Nitrate Negative, Urine Bilirubin Negative, Urine Urobilinogen 0.2, Ur Leukocyte Esterase Trace, Urine WBC 5-10, Ur Squamous Epith Cells 20-50 01/25/22 05:30: SARS-CoV-2 (PCR) Not detected, Influenza A Untype (PCR) Not detected, Influenza Type B (PCR) Not detected 01/25/22 05:30: Urine Opiates Screen Negative, Urine Methadone Screen Negative, Ur Barbituates Screen Negative, Ur Phencyclidine Scrn Negative, Ur Amphetamines Screen Negative, U Benzodiazepines Scrn Negative, Urine Cocaine Screen Negative, U Marijuana (THC) Screen Negative 01/25/22 05:30: Blood Type A Positive, Antibody Screen Negative, Crossmatch (AHG) See Detail I & O for Last 24 hours: Intake & Output 01/23/22 01/24/22 01/25/22 01/26/22 11:59 11:59 11:59 11:59 Weight 207 lb 0.013 oz - Constitutional no acute distress - *Routine HEENT Exam Head: Present: normocephalic Eye: Absent: scleral injection ENT: Present: mucous membranes moist - *Routine Neck Exam Present: supple. Absent: lymphadenopathy - *Routine Respiratory Exam Present: CTA bilaterally - *Routine Cardiovascular Exam Present: RRR - *Routine Abdominal Exam Present: soft, normoactive bowel sounds. Absent: tenderness - *Routine Rectal Exam Rectal:: deferred - *Routine Genitalia Exam Genitalia:: normal female Comment:: cervix AROM with clear fluid IUPC and FSE placed without difficulty - *Routine Extremities Exam Absent: cyanosis, clubbing, edema - *Routine Skin Exam Present: warm. Absent: rash - *Routine Neurological Exam Present: alert, orien
--- NOTE | 2022-01-25 09:35 | HMH.ANESCL ---
[facility] Anesthesia Checklist - Patient Identification Patient Identification: Arm Band - Structural Data Admitted From: Inpatient Planned Operative Procedure/s: Labor Epidural Consent for Planned Operative Procedure(s) Verified: Yes Verified Documents: Surgical Consent, History and Physical - NPO Status Verified Time NPO: 00:00 - Additional verifications Anesthesia Reactions: No - Airway Assessment C-Spine Mobility Assessed: Yes (mp2) TMJ Mobility Assessed: Yes Dentition: Good Dentition - Neurological Assessment Level of Consciousness: Awake, Alert - Anesthesia Plan Anesthesia Risk discussed: Yes Anesthesia Plan: Verified ASA Class: II Anesthesia Type: Epidural [facility] History I have reviewed the patient's past medical history: Yes Medical History: Reports:: Anxiety, Depression *Have you ever received a pneumonia vaccine?: No *Have you received a flu vaccine this season?: No Anesthesia experience/problems:: nac Other Surgeries: Yes: No Previous Surgery. No: Amputation: No Fractures: No - *Social History Smoking Status: Never smoker Alcohol Intake: never Alcohol Intake Frequency:: other Substance Use Type: denies use *Occupational Status:: employed Housing: house Household Members: family *Travel in the last 8 weeks: None - Psychiatric History Pschychiatric History:: Reports:: Anxiety, Depression Family Hx:: Cancer, Diabetes, Hypertension, Stroke, Thyroid Disorder Para: 0
[2022-01-25 20:49] LABS: Hematocrit 25.7 % (37.0-47.0)
--- NOTE | 2022-01-25 20:58 | P.PCN_ITS ---
- Delivery Note Delivery Date:: 01/25/22 Delivery Time:: 19:29 Anesthesia Type: Epidural Was labor medically induced?: Yes Induction method: per pitocin protocol Gestational age (weeks): 39 delivered prior to 39 weeks?: No Gender: Male at 1 minute: 8 at 5 minutes: 9 Delivery Procedure:: Vacuum assisted vaginal delivery of live born male infant over intact perineum. Indication for operative vaginal delivery: maternal exhaustion, vaginal edema Vacuum applied to vertex at +2 station. delivered in single pull over machine operator one contraction, using vacuum in standard fashion. Apgars: 8 & 9 placed immediately on maternal abdomen for nursing assessment & VICKI imm ediately after umbilical cord clamped/cut Placenta spontaneously expressed and examined; noted to be complete/intact Second degree vaginal laceration and right sulcus laceration repaired with 2-0 vicryl in layers EBL: 500 All sponge/needle/instrument counts correct at conclusion of procedure Disposition: Mother stable to recovery. brought to nursing station for observation. Laceration:: vaginal Placental Delivery Description: Spontaneous
[2022-01-25 21:00] LABS: Hemoglobin 8.2 g/dL (12.2-16.2)
[2022-01-26] VITALS (18 sets, daily range): BP systolic 118–179; BP diastolic 61–98; PULSE 74–90; RESP 17–18; TEMP 36.7–37.1; O2SAT 98–100
[2022-01-26 07:51] LABS: Hematocrit 21.2 % (37.0-47.0)
[2022-01-26 08:03] LABS: Hemoglobin 6.9 g/dL (12.2-16.2)
--- NOTE | 2022-01-26 14:24 | HMH.ACPN2 ---
Internal Medicine - PN: Subj *Date: 01/26/22 *Time: 14:24 Interval history: PPD #1 VAVD QBL for delivery 591cc, with acute hypotensive episode 1 hour after delivery BP and clinical symptoms improved with aggressive fluid bolus Hgb this morning is 6.9 (9.7 at admission) She has been advised for transfusion 2 units packed red cells and is agreeable to this plan She has had intermittent dizziness with ambulation She is voiding appropriately Lochia appropriate Tolerating regular diet No S/Sx depression FOB not involved but she has good family support Her mother and aunt were present during labor/delivery and someone has been with her at all times since delivery Exam Vital signs and Labs for Last 24 Hours: Temp Pulse Resp BP Pulse Ox 98.5 F 75 18 137/81 99 01/26/22 14:03 01/26/22 14:03 01/26/22 14:03 01/26/22 14:03 01/26/22 14:03 Laboratory Results - last 24 hr 01/25/22 05:30: Blood Type A Positive, Antibody Screen Negative, Crossmatch (AHG) See Detail 01/25/22 20:15: Hgb 8.2 L D, Hct 25.7 L 01/26/22 07:18: Hgb 6.9 L, Hct 21.2 L I & O for Last 24 hours: Intake & Output 01/24/22 01/25/22 01/26/22 01/27/22 11:59 11:59 11:59 11:59 Weight 207 lb 0.013 oz Narrative: CONSTITUTIONAL: no acute distress HEENT: mucous membranes moist PULMONARY: breathing unlabored without audible wheezes CV: no tachycardia or visible JVD; normal LE peripheral pulses ABD: soft, NT/ND, no guarding : fundus firm below umbilicus SKIN: no visible rash or lesions EXT: 1+ edema LEs NEURO: alert/oriented, no altered mental status PSYCH: appropriate mood and demeanor Assessment and Plan (1) 39 weeks gestation of Status: Acute Category: Medical Code(s): Z3A.39 - 39 weeks gestation of (2) Anemia Status: Acute Category: Medical Code(s): D64.9 - Anemia, unspecified (3) hemorrhage Status: Acute Category: Medical Code(s): O72.1 - Other immediate hemorrhage (4) Anemia associated with acute blood loss Status: Acute Category: Medical Code(s): D62 - Acute posthemorrhagic anemia - Assessment and plan all Dx Assessment and Plan for all problems:: Transfusion 2 units PRBCs with post-transfusion Hgb Possible discharge home tomorrow
[2022-01-26 17:47] LABS: Hematocrit 28.2 % (37.0-47.0)
--- NOTE | 2022-01-27 08:16 | HMH.OBDCSM ---
General - General Admission date:: 01/25/22 Discharge date: 01/27/22 HPI - History of Present Illness History of present illness: PPD# 2 s/p VAVD Patient standing at bedside. Feeling well this morning. Lochia light. She is breast and formula feeding. Pain controlled. Voiding without difficulty. Passing flatus. Tolerating regular diet. Denies headaches, dizziness/lightheadedness vision changes and swelling. No fever/chills, chest pain or shortness of breath. Hospital Course Hospital Course: Ms Haley Smith is a 21 yo at 39w4d admitted to [facility] Labor and Delivery on 01/25/22 for scheduled induction of labor. She had a vacuum assisted vaginal delivery on 01/25/22. She delivered a boy, named Keith, weighing 7 lb 14 oz. APGARs were 8, 9. QBL was 591 mL. She developed hyoptensive episode 1 hour after delivery. She received IV fluids and 2 units of PRBCs. PPD #1 She was doing well. No chief complaints. She is breast and formula feeding. Vitals were: BP 137/81, HR 75, R 18, T 98.5. Heart was regular rate and rhythm. Lungs were clear to auscultation. ABdomen was soft, nontender, uterine fundus firm and below umbilicus. Lochia was appropriate. PPD # 2 She was doing well. She had no chief complaints. Reported decreased lochia. She was urinating without difficulty. Passing flatus. Pain was controlled. She had no nausea, vomiting, fever/chills, chest pain or shortness of breath. Vitals were stable. Heart was regular rate and rhythm. Lungs were clear to auscultation. Abdomen was soft, nontender, uterine fundus firm and below umbilicus. Extremities were non-edematous and she had no calf tenderness to palpation. Normal hospital course. During this admission, patient's hemoglobin and hematocrit were: 01/25/22: Hgb 9.7, Hct 30.3 01/26/22: Hgb 6.9, Hct 21.2, after 2 units PRBCs: Hgb 9.0, Hct 28.2 Rhogam Administration: Not Indicated Objective Vital signs: Temp Pulse Resp BP Pulse Ox 98.3 F 90 18 143/72 H 99 01/26/22 16:25 01/26/22 16:25 01/26/22 16:25 01/26/22 16:25 01/26/22 16:25 no acute distress - *Routine HEENT Exam Head: Present: normocephalic Eye: Absent: conjunctivae pink ENT: Present: mucous membranes moist - *Routine Respiratory Exam Present: CTA bilaterally - *Routine Cardiovascular Exam Present: RRR - *Routine Abdominal Exam Present: soft, normoactive bowel sounds. Absent: tenderness, distended Comments: Uterine fundus firm and below umbilicus - *Routine Extremities Exam Present: full ROM. Absent: edema, calf tenderness - *Routine Neurological Exam Present: alert, oriented X3 Results Labs on day of discharge: Labs from last 24 hours 01/26/22 01/25/22 17:35 05:30 Hgb 9.0 L D Hct 28.2 L Blood Type A Positive Antibody Screen Negative Crossmatch (AHG) See Detail DS: Diagnosis - Discharge Diagnosis (1) 39 weeks gestation of Status: Acute (2) Anemia Status: Acute (3) hemorrhage Status: Acute (4) Anemia associated with acute blood loss Status: Acute Discharge Plan - Patient Discharge Instructions ACTIVITY: Continue current activity DIET: regular diet - Follow up Plan Disposition: Home, Self-Care Condition at discharge:: Stable Home Medications: Home Medications Medication Instructions Recorded Confirmed Type vits no.126-ferrous fum 1 tab PO DAILY tab 10/19/21 01/25/22 History 28 mg iron-folic acid 800 mcg tablet Omeprazole 20 mg PO DAILY 01/25/22 01/25/22 History Ibuprofen [Motrin 400mg 800 mg PO Q8HP PRN #20 tab 01/27/22 Rx tablet] Prescriptions/Medication Reconciliation: New Acetaminophen [Acetaminophen 325mg tab] 650 mg PO Q4HP PRN tab PRN Reason: Mild Pain Ibuprofen [Motrin 400mg tablet] 800 mg PO Q8HP PRN #20 tab PRN Reason: Mild To Moderate Pain Continued vits no.126-ferrous fum 28 mg iron-folic aci
[2022-02-19 07:26] LABS: POC Glucose,Bedside 77 (70-110)
== END 2022-01-27 12:25 | disposition home or self-care (01) | DRG 806 ==
PROVIDERS: Admitting Provider Obstetrics & Gynecology; PCP Nurse Practitioner Family; Visit Provider Obstetrics & Gynecology
DX: O99.344 Other mental disorders complicating childbirth (principal); D62 Acute posthemorrhagic anemia; Z37.0 Single live birth; O72.1 Other immediate postpartum hemorrhage; Z3A.39 39 weeks gestation of pregnancy; F41.9 Anxiety disorder, unspecified; F32.A Depression, unspecified; O99.02 Anemia complicating childbirth; O90.81 Anemia of the puerperium; O70.1 Second degree perineal laceration during delivery
CPT/HCPCS: 59409; 36415; 59025; 80305; 81001; 82962; 85014; 85018; 85025; 86850; 94761; C1758; C9803; G0283; J2405; P9016; U0003; U0005

== ENCOUNTER 2022-06-03 17:51 | Emergency (ER) | payer BC, MEDICAID, SELFPAY ==
[2022-06-03 19:25] VITALS: BP 133/88; PULSE 80; RESP 18; TEMP 37; O2SAT 99; BMI 27.6
--- NOTE | 2022-06-03 19:36 | EXP.UTC ---
Discharge Plan Disposition Patient Disposition: Home, Self-Care Condition: Good Prescriptions Prescriptions: New oseltamivir [Tamiflu] 75 mg capsule 75 mg PO BID Qty: 10 0RF qaequlbzdqakvjw-pekrhuzbb-FV [Bromfed DM] 2-30-10 mg/5 mL Syrup 5 ml PO Q6H PRN (Reason: Cough) Qty: 240 0RF ondansetron 4 mg Tablet,Disintegrating 4 mg PO Q8H PRN (Reason: Nausea) Qty: 20 0RF No Action vilazodone [Viibryd] 20 mg Tablet 20 mg PO DAILY Referrals Follow up/Referrals: Dilcia Quinonez APRN [Primary Care Provider] - See instructions Activity Restrictions/Add. Instructions Additional Instructions/Restrictions: Drink plenty of fluids. Take tylenol or ibuprofen for pain or fever. Take the medications as directed. Follow up with your regular doctor. GO TO THE ER FOR ANY WORSENING SYMPTOMS Clinical Impressions Clinical Impression: Influenza Stand Alone Forms Stand Alone Forms: Work/School Release Instructions Patient Instructions: DI for Influenza -- Adult, Oseltamivir Discharge ED Provider: Darien Cook [facility] [place], [place] General Stated complaint: cough, body aches, chills Mode of Arrival: Ambulatory Source of Information: Patient Limitations: No Limitations Time Seen by Provider: 06/03/22 19:36 Description of Symptoms (Recalled from Triage Doc. by RN): PATIENT C/O SNEEZING, COUGH, FEVERS, CHILLS, BODY ACHES AND HEADACHE SINCE LAST NIGHT. EXPOSED TO FLU HEENT Symptoms (Recalled from RN notes): Yes Resp Symptoms (Recalled from RN notes): No Skin Symptoms (Recalled from RN notes): No MS Symptoms (Recalled from RN notes): No Functional Status (Recalled from RN notes): WNL History of Present Illness Provider Complaint: she states that since last night she has had fever, chills, low grade fever, body aches and malaise. Her 4 month old baby currently has influenza A. Related Data Home Medications Medication Instructions Recorded Confirmed vilazodone 20 mg tablet (Viibryd) 20 mg PO DAILY Anxiety 06/03/22 06/03/22 Previous Rx's Medication Instructions Recorded mpxawbthmntfmhi-nliivqqdoxoycsj-LS 5 ml PO Q6H PRN Cough #240 mL 12/15/22 2 mg-30 mg-10 mg/5 mL oral syrup (Bromfed DM) ondansetron 4 mg disintegrating 4 mg PO Q8H PRN Nausea #20 tabs 06/03/22 tablet oseltamivir 75 mg capsule (Tamiflu) 75 mg PO BID #10 caps 06/03/22 Allergies Allergy/AdvReac Type Severity Reaction Status Date / Time oxycodone AdvReac Intermediate Hives Verified 04/21/22 11:31 Worker's Comp Is this a Worker's Comp case?: No [facility] Disclaimer: The information contained in this section may have been updated after the patient was seen, as this information can be updated by other users. Medical History Asthma Generalized anxiety disorder Major depressive disorder Social History Smoking Status: Never smoker alcohol intake: never substance use type: denies use current occupational status: employed Travel in the last 8 weeks: None household members: family housing: house number of children: 0 ROS Obtained: Yes All systems reviewed & no additional complaints except as documented Constitutional Constitutional: Reports chills and Reports fever(s) Eyes Eyes: Denies eye discharge ENT Ears, Nose, Mouth, and Throat: Reports as per HPI Cardiovascular Cardiovascular: Denies chest pain Respiratory Respiratory: Denies chest congestion and Reports cough Gastrointestinal Gastrointestingal: Reports nausea; Denies abdominal pain, constipation, cramping, diarrhea or vomiting Musculoskeletal Musculoskeletal: Denies arthralgias Integumentary/Breasts Skin/Breast: Denies rash Neurologic Neurologic: Denies paresthesias Physical Exam General General appearance: alert and in no apparent distress Head Head exam: atraumatic, normocephalic and normal inspection Eye Eye exam: Present normal a
[2022-06-03 19:38] VITALS: BP 133/88; PULSE 80; RESP 18; TEMP 37; O2SAT 99
[2022-06-03 22:41] LABS: Coronavirus 19, PCR Not Detected (NotDetected); Influenza B, PCR Not Detected (NotDetected)
[2022-06-03 23:42] LABS: Influenza A, PCR Detected (NotDetected)
== END 2022-06-03 20:24 | disposition home or self-care (01) ==
PROVIDERS: Emergency Provider Nurse Practitioner Family; PCP Nurse Practitioner Family
DX: J10.1 Influenza due to other identified influenza virus with other respiratory manifestations (principal)
CPT/HCPCS: 99212; C9803; G0463; U0003; U0005

== ENCOUNTER 2022-11-11 09:08 | Emergency (ER) | payer BC, MEDICAID, SELFPAY ==
[2022-11-11 09:08] VITALS: BP 116/74; PULSE 95; RESP 18; TEMP 36.9; O2SAT 96; BMI 30.1
--- NOTE | 2022-11-11 09:37 | EXP.UTC ---
Discharge Plan Disposition Patient Disposition: Home, Self-Care Condition: Good Prescriptions Prescriptions: New amoxicillin [amoxicillin] 875 mg tablet 875 mg PO Q12H Qty: 20 0RF methylprednisolone 4 mg Tablets,Dose Pack 4 mg PO DIRECTED Qty: 21 0RF No Action vilazodone [Viibryd] 20 mg tablet 20 mg PO DAILY Qty: 90 0RF ondansetron 4 mg Tablet,Disintegrating 4 mg PO Q8H PRN (Reason: Nausea) Qty: 20 0RF Referrals Follow up/Referrals: Dilcia Quinonez APRN [Primary Care Provider] - See instructions Activity Restrictions/Add. Instructions Additional Instructions/Restrictions: Drink plenty of fluids. Take tylenol or ibuprofen for pain or fever. Take the medications as directed. Follow up with your regular doctor. GO TO THE ER FOR ANY WORSENING SYMPTOMS Throw your tooth brush away and get a new one. Clinical Impressions Clinical Impression: Strep throat Stand Alone Forms Stand Alone Forms: Work/School Release Instructions Patient Instructions: Strep Throat, DI for Strep Throat Discharge ED Provider: Darien Cook [facility] General Stated complaint: Bodyaches, sore throat, cough, covid test Mode of Arrival: Ambulatory Source of Information: Patient Limitations: No Limitations Time Seen by Provider: 11/11/22 09:37 Description of Symptoms (Recalled from Triage Doc. by RN): Cough, head congestion, weakness since Tuesday. HEENT Symptoms (Recalled from RN notes): Yes Resp Symptoms (Recalled from RN notes): No Skin Symptoms (Recalled from RN notes): No MS Symptoms (Recalled from RN notes): No Functional Status (Recalled from RN notes): wnl History of Present Illness Provider Complaint: She c/o sore throat, runny nose, sinus congestion and feeling bad for the past 4 days. Related Data Previous Rx's Medication Instructions Recorded ondansetron 4 mg disintegrating 4 mg PO Q8H PRN Nausea #20 tabs 06/03/22 tablet vilazodone 20 mg tablet (Viibryd) 20 mg PO DAILY Anxiety #90 tabs 09/07/22 amoxicillin 875 mg tablet 875 mg PO Q12H #20 tabs 11/11/22 methylprednisolone 4 mg tablets in 4 mg PO DIRECTED #21 tabs 11/11/22 a dose pack Allergies Allergy/AdvReac Type Severity Reaction Status Date / Time oxycodone AdvReac Intermediate Hives Verified 09/08/22 15:02 Worker's Comp Is this a Worker's Comp case?: No [facility] Disclaimer: The information contained in this section may have been updated after the patient was seen, as this information can be updated by other users. Medical History Asthma Generalized anxiety disorder Major depressive disorder Social History Smoking Status: Never smoker alcohol intake: never substance use type: denies use current occupational status: employed Travel in the last 8 weeks: None household members: family housing: house number of children: 0 ROS Obtained: Yes All systems reviewed & no additional complaints except as documented Constitutional Constitutional: Reports chills and Reports fever(s) Eyes Eyes: Denies eye discharge ENT Ears, Nose, Mouth, and Throat: Reports as per HPI Cardiovascular Cardiovascular: Denies chest pain Respiratory Respiratory: Denies chest congestion and Reports cough Gastrointestinal Gastrointestingal: Reports nausea; Denies abdominal pain, constipation, cramping, diarrhea or vomiting Musculoskeletal Musculoskeletal: Denies arthralgias Integumentary/Breasts Skin/Breast: Denies rash Neurologic Neurologic: Denies paresthesias Physical Exam General General appearance: alert and in no apparent distress Head Head exam: atraumatic, normocephalic and normal inspection Eye Eye exam: Present normal appearance, PERRL and EOMI ENT ENT exam: Present mucous membranes moist and normal external ear exam Expanded ENT Exam TM/Canal exam: Bilateral TM: erythema and bulging Nose exam: Abse
[2022-11-11 09:53] LABS: UTC Strep Screen (Rapid) Positive (Negative)
[2022-11-11 10:24] VITALS: BP 116/74; PULSE 95; RESP 18; TEMP 36.9; O2SAT 96
== END 2022-11-11 10:25 | disposition home or self-care (01) ==
PROVIDERS: Emergency Provider Nurse Practitioner Family; PCP Nurse Practitioner Family
DX: J02.0 Streptococcal pharyngitis (principal); M79.18 Myalgia, other site; Z20.822 Contact with and (suspected) exposure to COVID-19
CPT/HCPCS: 87880; 99212; 99214; G0463

== ENCOUNTER 2023-02-03 17:23 | Emergency (ER) | payer BC, MEDICAID, SELFPAY ==
[2023-02-03 17:24] VITALS: BP 116/76; PULSE 102; RESP 18; TEMP 36.8; O2SAT 97; BMI 30.6
--- NOTE | 2023-02-03 17:32 | EXP.UTC ---
Discharge Plan Disposition Patient Disposition: Home, Self-Care Condition: Good Prescriptions Prescriptions: New cephalexin 500 mg capsule 500 mg PO QID Qty: 40 0RF mupirocin 2 % ointment 1 applic topical TID 7 Days Qty: 15 0RF Discontinued ondansetron 4 mg Tablet,Disintegrating 4 mg PO Q8H PRN (Reason: Nausea) Qty: 20 0RF amoxicillin [amoxicillin] 875 mg tablet 875 mg PO Q12H Qty: 20 0RF methylprednisolone 4 mg Tablets,Dose Pack 4 mg PO DIRECTED Qty: 21 0RF No Action vilazodone [Viibryd] 20 mg tablet 20 mg PO DAILY Qty: 90 0RF vilazodone [Viibryd] 20 mg tablet See Rx Instructions PO DAILY 30 Days Qty: 30 1RF Rx Instructions: take 1/2 tablet (10mg) for 8 days; then increase to 1 whole tablet PO daily; must administer with a meal/food Referrals Follow up/Referrals: Dilcia Quinonez APRN [Primary Care Provider] - See instructions Activity Restrictions/Add. Instructions Additional Instructions/Restrictions: Keep the wound clean and dry. Take the antibiotics and apply the topical antibiotic ointment as directed. Watch the wound for signs of worsening infection, such as redness, swelling, drainage, fever. etc. Take tylenol or ibuprofen for pain. Follow up with your regular doctor. GO TO THE ER FOR ANY WORSENING SYMPTOMS OR CONCERNS. Clinical Impressions Clinical Impression: Abrasion of knee, right, infected Instructions Patient Instructions: DI for Abrasion Discharge ED Provider: [place] Cook [facility] [place] General Stated complaint: RT knee poss inf wound Time Seen by Provider: 02/03/23 17:32 History of Present Illness Provider Complaint: She states that she fell 4 days ago and came down on her right knee. She has an abrasion on that knee that she thinks is getting infected. She denies any other injury. Related Data Previous Rx's Medication Instructions Recorded vilazodone 20 mg tablet (Viibryd) 20 mg PO DAILY Anxiety #90 tabs 09/07/22 vilazodone 20 mg tablet (Viibryd) See Rx Instructions PO DAILY 30 12/06/22 days #30 tabs cephalexin 500 mg capsule 500 mg PO QID #40 caps 02/03/23 mupirocin 2 % topical ointment 1 applic topical TID 7 days #15 02/03/23 grams Allergies Allergy/AdvReac Type Severity Reaction Status Date / Time oxycodone AdvReac Intermediate Hives Verified 12/21/22 20:01 [facility] Disclaimer: The information contained in this section may have been updated after the patient was seen, as this information can be updated by other users. Medical History Asthma Generalized anxiety disorder Major depressive disorder Social History Smoking Status: Never smoker alcohol intake: never substance use type: denies use current occupational status: employed Travel in the last 8 weeks: None household members: family housing: house number of children: 0 ROS Obtained: Yes All systems reviewed & no additional complaints except as documented Constitutional Constitutional: Denies chills and Denies fever(s) Eyes Eyes: Denies eye discharge ENT Ears, Nose, Mouth, and Throat: Denies dizziness, Denies otalgia and Denies sore throat Cardiovascular Cardiovascular: Denies chest pain Respiratory Respiratory: Denies shortness of breath, Denies chest congestion, Denies cough, Denies stridor and Denies wheezing Gastrointestinal Gastrointestingal: Denies nausea or vomiting Musculoskeletal Musculoskeletal: Reports as per HPI Integumentary/Breasts Skin/Breast: Denies rash Neurologic Neurologic: Denies dizziness and Denies paresthesias Allergic/Immunologic Allergic/Immunologic: Denies wheezing Physical Exam General General appearance: alert and in no apparent distress Head Head exam: atraumatic, normocephalic and normal inspection Eye Eye exam: Present normal appearance, PERRL and EOMI ENT ENT exam: Present normal
[2023-02-03 18:03] VITALS: BP 116/76; PULSE 102; RESP 18; TEMP 36.8; O2SAT 97
== END 2023-02-03 18:03 | disposition home or self-care (01) ==
PROVIDERS: Emergency Provider Nurse Practitioner Family; PCP Nurse Practitioner Family
DX: L08.9 Local infection of the skin and subcutaneous tissue, unspecified (principal); S80.211A Abrasion, right knee, initial encounter; J45.909 Unspecified asthma, uncomplicated; F41.1 Generalized anxiety disorder; F33.9 Major depressive disorder, recurrent, unspecified; W18.30XA Fall on same level, unspecified, initial encounter
CPT/HCPCS: 99212; 99214; G0463

== ENCOUNTER 2023-05-31 13:57 | Emergency (ER) | payer BC, MEDICAID, SELFPAY ==
[2023-05-31 15:05] VITALS: BP 105/63; PULSE 79; RESP 18; TEMP 37.2; O2SAT 100; BMI 31.5
--- NOTE | 2023-05-31 15:07 | EXP.UTC ---
Discharge Plan Disposition Patient Disposition: Home, Self-Care Condition: Good Prescriptions Prescriptions: New ygadfbuyrvqckwg-hmaraothm-TR [Bromfed DM] 2-30-10 mg/5 mL Syrup 5 ml PO Q6H PRN (Reason: Cough) Qty: 240 0RF ondansetron 4 mg Tablet,Disintegrating 4 mg PO Q8H PRN (Reason: Nausea) Qty: 12 0RF No Action desvenlafaxine succinate [Pristiq] 100 mg tablet extended release 24 hr 100 mg PO DAILY Qty: 30 1RF Referrals Follow up/Referrals: Dilcia Quinonez APRN [Primary Care Provider] - See instructions Activity Restrictions/Add. Instructions Additional Instructions/Restrictions: Drink plenty of fluids. Take tylenol or ibuprofen for pain or fever. Take the medications as directed. Follow up with your regular doctor. GO TO THE ER FOR ANY WORSENING SYMPTOMS Clinical Impressions Clinical Impression: Acute viral syndrome, Exposure to 2019 novel coronavirus Stand Alone Forms Stand Alone Forms: Work/School Release Instructions Patient Instructions: Coronavirus Disease 2019, Preventing the Spread of Coronavirus Discharge Instructions Discharge ED Provider: Darien Cook [facility] General Stated complaint: headache,sore throat,congestion Time Seen by Provider: 05/31/23 15:06 History of Present Illness Provider Complaint: She states that since yesterday she has had body aches, chills and fever. Her child currently has covid-19. Related Data Previous Rx's Medication Instructions Recorded desvenlafaxine succinate 100 mg 100 mg PO DAILY #30 tabs 05/03/23 tablet,extended release 24 hr (Pristiq) crrmnhxjrljszxs-oaauuehmtjieavy-LX 5 ml PO Q6H PRN Cough #240 mL 05/31/23 2 mg-30 mg-10 mg/5 mL oral syrup (Bromfed DM) ondansetron 4 mg disintegrating 4 mg PO Q8H PRN Nausea #12 tabs 05/31/23 tablet Allergies Allergy/AdvReac Type Severity Reaction Status Date / Time oxycodone AdvReac Intermediate Hives Verified 05/31/23 15:19 [facility] Disclaimer: The information contained in this section may have been updated after the patient was seen, as this information can be updated by other users. Medical History Asthma Generalized anxiety disorder Major depressive disorder Social History Smoking Status: Never smoker alcohol intake: never substance use type: denies use current occupational status: employed Travel in the last 8 weeks: None household members: family housing: house number of children: 0 ROS Obtained: Yes All systems reviewed & no additional complaints except as documented Constitutional Constitutional: Reports chills and Reports fever(s) Eyes Eyes: Denies eye discharge ENT Ears, Nose, Mouth, and Throat: Reports as per HPI Cardiovascular Cardiovascular: Denies chest pain Respiratory Respiratory: Denies chest congestion and Reports cough Gastrointestinal Gastrointestingal: Reports nausea; Denies abdominal pain, constipation, cramping, diarrhea or vomiting Musculoskeletal Musculoskeletal: Denies arthralgias Integumentary/Breasts Skin/Breast: Denies rash Neurologic Neurologic: Denies paresthesias Physical Exam General General appearance: alert and in no apparent distress Head Head exam: atraumatic, normocephalic and normal inspection Eye Eye exam: Present normal appearance, PERRL and EOMI ENT ENT exam: Present normal exam, normal oropharynx, mucous membranes moist, TM's normal bilaterally and normal external ear exam Neck Neck exam: Present normal inspection, full ROM and trachea midline; Absent meningismus or lymphadenopathy Chest Chest inspection: Present normal inspection and symmetric chest wall rise; Absent tenderness Respiratory Respiratory exam: Present normal lung sounds bilaterally; Absent respiratory distress Cardiovascular Cardiovascular exam: Present regular rate and normal rhythm; Absent JVD Abdominal Exam Abdom
[2023-05-31 15:45] VITALS: BP 105/63; PULSE 79; RESP 18; TEMP 37.2; O2SAT 100
== END 2023-05-31 15:45 | disposition home or self-care (01) ==
PROVIDERS: Emergency Provider Nurse Practitioner Family; PCP Nurse Practitioner Family
DX: R51.9 Headache, unspecified (principal); R07.0 Pain in throat; R50.9 Fever, unspecified; R05.9 Cough, unspecified; R09.81 Nasal congestion; M79.18 Myalgia, other site; J45.909 Unspecified asthma, uncomplicated; Z20.822 Contact with and (suspected) exposure to COVID-19
CPT/HCPCS: 87635; 99212; 99214; G0463

== ENCOUNTER 2023-07-09 12:46 | Emergency (ER) | payer BC, MEDICAID, SELFPAY ==
[2023-07-09 12:55] VITALS: BP 130/86; PULSE 109; RESP 21; TEMP 37.4; O2SAT 97; BMI 30.3
--- NOTE | 2023-07-09 13:01 | EXP.UTC ---
Discharge Plan Disposition Patient Disposition: Home, Self-Care Condition: Good Prescriptions Prescriptions: No Action atomoxetine [Strattera] 40 mg capsule 40 mg PO DAILY Qty: 30 1RF desvenlafaxine succinate [Pristiq] 100 mg tablet extended release 24 hr 100 mg PO DAILY Qty: 30 1RF dlnipaipdygrefc-vngiwmvzh-YG [Bromfed DM] 2-30-10 mg/5 mL Syrup 5 ml PO Q6H PRN (Reason: Cough) Qty: 240 0RF ondansetron 4 mg Tablet,Disintegrating 4 mg PO Q8H PRN (Reason: Nausea) Qty: 12 0RF Referrals Follow up/Referrals: Dilcia Quinonez APRN [Primary Care Provider] - See instructions Activity Restrictions/Add. Instructions Additional Instructions/Restrictions: *Monitor Temp, Over the counter Motrin or Tylenol as directed/as needed Tylenol every 4 hours and Motrin every 6 hours (as long as your family doctor has told you that you can take it) for fever or pain. and straight to ER if unable to lower temp less than 101.0 after medication given *Warm salt water gargles may help to soothe the throat *Throat Lozenges? *Warm fluids like tea with honey may help to soothe the throat? *Sleep elevated *Humidifier/Vaporizer Make sure to follow up with your Family Doctor if you are still not feeling well in a couple of days Your throat swab was sent for culture. Those results are typically sent to your primary care. Be sure to follow up in 2-3 days with your family doctor/primary care physician if no improvement so they can review those result and treat if necessary. If you don?t have a primary care doctor, I recommend you get one but in the mean time, you will have to return to a walk in clinic Follow up IMMEDIATELY for new or worsening symptoms or no Noticeable improvement over the next 48-72 hours. 911 for difficulty breathing or swallowing Clinical Impressions Clinical Impression: Viral syndrome Stand Alone Forms Stand Alone Forms: Work/School Release Instructions Patient Instructions: DI for Viral Syndrome, DI for Fever (Symptom) -- Adult Discharge ED Provider: Kenyetta Osuna [facility] HPI General Stated complaint: cough, bodyaches, headache Mode of Arrival: Ambulatory Source of Information: Patient Limitations: No Limitations Time Seen by Provider: 07/09/23 13:02 Description of Symptoms (Recalled from Triage Doc. by RN): PATIENT C/O BODY ACHES, HEADACHE AND NAUSEA SINCE YESTERDAY MORNING. RECENTLY EXPOSED TO STREP AND FLU HEENT Symptoms (Recalled from RN notes): Yes Resp Symptoms (Recalled from RN notes): No Skin Symptoms (Recalled from RN notes): No MS Symptoms (Recalled from RN notes): No Functional Status (Recalled from RN notes): WNL History of Present Illness Provider Complaint: Patient states that she was recently exposed to strep throat and flu States that she started feeling bad yesterday with body aches, chills, headache, nausea and over all feeling bad States that today she wasnt feeling any better so she came in to get checked Related Data Previous Rx's Medication Instructions Recorded desvenlafaxine succinate 100 mg 100 mg PO DAILY #30 tabs 05/03/23 tablet,extended release 24 hr (Pristiq) sqjcczulypwzpsk-ldnvgqwndpbrwbh-QG 5 ml PO Q6H PRN Cough #240 mL 05/31/23 2 mg-30 mg-10 mg/5 mL oral syrup (Bromfed DM) ondansetron 4 mg disintegrating 4 mg PO Q8H PRN Nausea #12 tabs 05/31/23 tablet atomoxetine 40 mg capsule 40 mg PO DAILY #30 caps 06/27/23 (Strattera) Allergies Allergy/AdvReac Type Severity Reaction Status Date / Time oxycodone AdvReac Intermediate Hives Verified 05/31/23 15:19 Worker's Comp Is this a Worker's Comp case?: [facility] Disclaimer: The information contained in this section may have been updated after the patient was seen, as this information can be updated by other users. Medical History Asthma Generalized anxiety disorder Major depressive disorder Social History Smoking Status: Never smoker alcohol intake: never substance use type: denies use current occupational status: employed Travel in the last 8 weeks: None household members: family housing: house number of children: 0 ROS Obtained: Yes All systems reviewed & no additional complaints except as documented and Yes Systems reviewed as appropriate & no additional complaints except as documented Constitutional Constitutional: Reports system reviewed and no additional complaints, except as documented, Reports as per HPI, Reports body ache and Reports headache(s) ENT Ears, Nose, Mouth, and Throat: Reports system reviewed and no additional complaints, except as documented, Reports as per HPI and Reports headache(s) Cardiovascular Cardiovascular: Reports system reviewed and no additional complaints, except as documented and Reports as per HPI Respiratory Respiratory: Reports system reviewed and no additional complaints, except as documented and Reports as per HPI Gastrointestinal Gastrointestingal: Reports system reviewed and no additional complaints, except as documented, as per HPI and nausea; Denies abdominal pain, diarrhea or vomiting Neurologic Neurologic: Reports headache(s) Physical Exam General General appearance: alert and in no apparent distress ENT ENT exam: Present mucous membranes moist Expanded ENT Exam Nose exam: Absent sinus tenderness Throat exam: Present tonsillar erythema Respiratory Respiratory exam: Present normal lung sounds bilaterally; Absent respiratory distress or wheezes Cardiovascular Cardiovascular exam: Present regular rate, normal rhythm and normal heart sounds Abdominal Exam Abdominal exam: Present soft and normal bowel sounds; Absent distention or tenderness Neurological Exam Neurological exam: Present alert, oriented X3 and normal gait Medical Decision Making Jeremy Inquiry Pt receiving controlled substance: No Jeremy was queried for this patient: No Vital Signs: 07/09/23 12:55 Temperature 99.4 F Temperature Source Oral Pulse Rate [Left Brachial] 109 H Respiratory Rate 21 Blood Pressure [Left Arm] 130/86 Blood Pressure Mean [Left Arm] 100 Blood Pressure Source [Left Arm] Automatic Cuff Blood Pressure Position [Left Arm] Sitting 02 Sat by Pulse Oximetry 97 Oxygen Delivery Method Room Air Lab Data Lab results reviewed: Yes I reviewed the patient's lab results.
[2023-07-09 13:17] LABS: UTC Influenza A Antigen Negative (Negative); UTC Influenza B Antigen Negative (Negative); UTC Strep Screen (Rapid) Negative (Negative)
[2023-07-09 13:25] VITALS: BP 128/75; PULSE 76; RESP 18; TEMP 36.6; O2SAT 99
== END 2023-07-09 13:25 | disposition home or self-care (01) ==
PROVIDERS: Emergency Provider Nurse Practitioner; PCP Nurse Practitioner Family
DX: R51.9 Headache, unspecified (principal); R11.0 Nausea; R05.9 Cough, unspecified; R68.83 Chills (without fever); M79.18 Myalgia, other site; B34.9 Viral infection, unspecified; Z20.818 Contact with and (suspected) exposure to other bacterial communicable diseases; Z20.828 Contact with and (suspected) exposure to other viral communicable diseases
CPT/HCPCS: 87635; 87804; 87880; 99212; 99213; 99214; G0463

== ENCOUNTER 2024-01-03 08:06 | Emergency (ER) | payer BC, SELFPAY ==
[2024-01-03 08:07] VITALS: BP 151/88; PULSE 124; RESP 23; TEMP 37.1; O2SAT 97; BMI 30.1
--- NOTE | 2024-01-03 08:09 | ECG_ITS ---
APPROVED REPORT Exam: Resting ECG HR:120 bpm ECG Measurements Heart Rate 120 AXES GA 138 P 74 QRSd 85 QRS 66 QT 339 T 59 QTc 410 Conclusion SINUS TACHYCARDIA NONSPECIFIC ST & T-WAVE ABNORMALITY ABNORMAL RHYTHM ECG UNCONFIRMED REPORT Electronically signed by : REID MENDOZA, 01/03/2024 13:27:04
--- NOTE | 2024-01-03 08:19 | ED_ITS ---
Discharge Plan Disposition Patient Disposition: Home, Self-Care Condition: Good Prescriptions Prescriptions: New ondansetron 4 mg tablet,disintegrating 4 mg PO Q6 PRN (Reason: nausea and vomiting) 3 Days Qty: 12 0RF No Action escitalopram oxalate [Lexapro] 10 mg tablet 10 mg PO DAILY Qty: 30 1RF ondansetron 4 mg Tablet,Disintegrating 4 mg PO Q8H PRN (Reason: Nausea) Qty: 12 0RF Referrals Follow up/Referrals: Provider,Referral, MD [Referring] - See instructions Activity Restrictions/Add. Instructions Additional Instructions/Restrictions: You have been evaluated in the ED for your complaints. You may follow-up with your PCP in the next 3 to 5 days. Please return to ED for any new or worsening symptoms. Please take Tylenol and Motrin as needed. Clinical Impressions Clinical Impression: COVID, Chest pain Discharge ED Provider: Ivan Fernández Adult HPI General Chief complaint: Chest Pain Stated complaint: Chest Pain Time Seen by Provider: 01/03/24 08:08 History of Present Illness HPI narrative: 23-year-old female with past medical history significant for anxiety, depression, presents today for evaluation concerning cough, congestion and central chest pressure over the past couple of days. She does report that she has multiple family members in the home who recently tested positive for COVID. She denies having any fevers or chills. She does report shortness of breath associated with her symptoms. She does not take oral contraceptives but does have an IUD in place. No further complaints on assessment Related Data Previous Rx's Medication Instructions Recorded ondansetron 4 mg disintegrating 4 mg PO Q8H PRN Nausea #12 tabs 05/31/23 tablet escitalopram oxalate 10 mg tablet 10 mg PO DAILY #30 tabs 12/06/23 (Lexapro) ondansetron 4 mg disintegrating 4 mg PO Q6 PRN nausea and vomiting 01/03/24 tablet 3 days #12 tabs Allergies Allergy/AdvReac Type Severity Reaction Status Date / Time oxycodone AdvReac Intermediate Hives Verified 12/13/23 09:36 [facility] Disclaimer: The information contained in this section may have been updated after the patient was seen, as this information can be updated by other users. Medical History Asthma Generalized anxiety disorder Major depressive disorder Social History Smoking Status: Never smoker alcohol intake: never substance use type: denies use current occupational status: employed Travel in the last 8 weeks: None household members: family housing: house number of children: 0 ROS Obtained: Yes All systems reviewed & no additional complaints except as documented Physical Exam General General appearance: alert and in no apparent distress Head Head exam: atraumatic and normocephalic Eye Eye exam: Present normal appearance, PERRL and EOMI ENT ENT exam: Present normal oropharynx and mucous membranes moist Neck Neck exam: Present full ROM; Absent meningismus Respiratory Respiratory exam: Absent respiratory distress, wheezes, stridor or accessory muscle use Cardiovascular Cardiovascular exam: Present normal rhythm and tachycardia Abdominal Exam Abdominal exam: Present soft; Absent distention, tenderness, guarding, rebound or rigidity Neurological Exam Neurological exam: Present alert, oriented X3 and CN II-XII intact; Absent motor sensory deficit Psychiatric Psychiatric exam: Present normal affect and normal mood Skin Skin exam: Present warm and dry Medical Decision Making Medical Records Medical records reviewed: Yes I reviewed the patient's medical records. Jeremy Inquiry Pt receiving controlled substance: No Jeremy was queried for this patient: No Vital Signs: 01/03/24 08:07 01/03/24 08:32 Temperature 98.8 F Temperature Source Oral Pulse Rate 120 H Pulse Rate [Left Radial] 124 H Respiratory Rate 23 31 H Blood Pressure 130/79 Blood Pressure [Right Arm] 151/88 H Blood Pressure Mean [Right Arm] 109 02 Sat by Pulse Oximetry 97 97 Oxygen Delivery Method Room Air Lab Data Lab Results 01/03/24 08:12: WBC 6.0, RBC 4.21, Hgb 12.9, Hct 38.0, MCV 90.2, MCH 30.6, MCHC 34.0, RDW 13.6, Plt Count 239, MPV 7.5, Neut % (Auto) 86.9 H, Lymph % (Auto) 8.4 L, Fergus % (Auto) 2.5, Eos % (Auto) 1.7, Baso % (Auto) 0.5, Neut # (Auto) 5.2, L ymph # (Auto) 0.5 L, Fergus # (Auto) 0.2, Eos # (Auto) 0.1, Baso # (Auto) 0.0, Total Counted 100, Neutrophils % (Manual) 94 H, Lymphocytes % (Manual) 5 L, M onocytes % (Manual) 1 L, Platelet Estimate Normal, RBC Morphology Normal, D- Dimer 0.40, Sodium 139, Potassium 3.8, Chloride 105, Carbon Dioxide 25, Anion Gap 12.8, BUN 12, Creatinine 0.70, Estimated GFR 103, Est GFR ( Amer) 124, Glucose 102 H, Calcium 9.5, Total Bilirubin 0.7, AST 27, ALT 20, Alkaline Phosphatase 73, Troponin I < 0.01, Total Protein 8.1, Albumin 4.9, Globulin 3.2, Albumin/Globulin Ratio 1.5, SARS-CoV-2 (PCR) Detected A, Influenza A Untype (PCR) Not detected, Influenza Type B (PCR) Not detected 01/03/24 08:12 01/03/24 08:12 Orders (Tests/Meds): ED MEDICATIONS Generic Name Dose Route Start Last Admin Trade Name Freq PRN Reason Stop Dose Admin Lactated Ringer's 1,000 mls @ 999 mls/hr 01/03/24 09:15 01/03/24 09:20 Lactated Ringer's 1000 Ml Bag IV 01/03/24 10:15 999 mls/hr .Q1H1M ONE Administration Discontinued Medications Generic Name Dose Route Start Last Admin Trade Name Freq PRN Reason Stop Dose Admin Ondansetron HCl 4 mg 01/03/24 09:15 01/03/24 09:20 Ondansetron 4mg Odt SL 01/03/24 09:16 4 mg ONCE ONE Administration ORDERS Category Date Time Status CXR 2 view (NOT portable) [XR chest 2V] Stat Exams 01/03/24 08:22 Taken CBC w/Auto Diff [Complete Blood Count Auto Diff] Stat Lab 01/03/24 08:12 Completed CMP [Comprehensive Metabolic Panel] Stat Lab 01/03/24 08:12 Completed D-Dimer Stat Lab 01/03/24 08:12 Completed Rapid PCR Covid and Flu A/B Stat Lab 01/03/24 08:12 Completed Trop I [Troponin I] Stat Lab 01/03/24 08:12 Completed HEART Score History (anamnesis): Slightly suspicious ECG: Normal Age: <45 years Risk factors: No known risk factors Troponin: </= normal limit HEART Score: 0 Medical Decision Narrative: 23-year-old female with past medical history significant for anxiety, depression, presents today for evaluation concerning cough, congestion and central chest pressure over the past couple of days. She does report that she has multiple family members in the home who recently tested positive for COVID. She denies having any fevers or chills. She does report shortness of breath associated with her symptoms. She does not take oral contraceptives but does have an IUD in place. She did recently travel back home from [place]. Denies history of PE/DVT. On assessment she was hemodynamically stable and in no acute distress. Afebrile. She was tachycardic to the 120s. Chest is otherwise clear to auscultation. Abdomen soft nondistended nontender palpation. Oropharynx was clear. Differential diagnoses include not limited to COVID, influenza, PE, pleural effusion, pneumonia, costochondritis, other viral URI, among others. EKG was personally inter by me and was remarkable for sinus tachycardia with a rate of 120 bpm. No ischemic changes Initial troponin less than 0.01. CBC and CMP were both nonactionable. D-dimer negative. She was COVID-positive on swab. I did give her a fluid bolus of LR and also gave her Zofran for her nausea. On reassessment she remained hemodynamically stable and in no acute distress. I discussed ED workup and results as well as current plan to discharge with supportive care measures in the setting of her COVID infection. Provided her with return to ED precautions and instructions concerning PCP follow-up. She verbalized understanding and agreement. Subsequently discharged. Critical Care Critical Care Time Critical Care Time: No
--- NOTE | 2024-01-03 08:22 | XR_ITS ---
FINAL REPORT CLINICAL HISTORY: Chest pressure, viral URI sx FINDINGS: PA and lateral views of the chest are obtained. There is no prior exam for comparison. The cardiac and mediastinal silhouettes are within normal limits. The lungs are clear. There is no pleural effusion, pneumothorax, or acute osseous abnormality. IMPRESSION: No radiographic evidence of acute cardiac or pulmonary disease. Reviewed, Interpreted and Dictated by Ashley Cardoza MD Transcribed by Tania Alvarez Authenticated and [facility]
[2024-01-03 08:28] LABS: Influenza A, PCR Not Detected (NotDetected); Influenza B, PCR Not Detected (NotDetected)
[2024-01-03 08:30] LABS: Basophils % 0.5 % (0.1-2.0); Eosinophils # 0.1 K/mm3 (0.0-0.4); Eosinophils % 1.7 % (0.1-12.0); Hemoglobin 12.9 g/dL (12.2-16.2); Lymphocytes # 0.5 K/mm3 (0.7-4.5); Lymphocytes % 8.4 % (10-50); Mean Corpuscular Hemoglobin 30.6 pg (27.0-31.2); Mean Corpuscular Volume 90.2 fl (81-99); Mean Platelet Volume 7.5 fl (7.4-10.4); Monocytes # 0.2 K/mm3 (0.1-1.0); Monocytes % 2.5 % (1.7-9.3); Neutrophils # 5.2 K/mm3 (1.8-7.8); Neutrophils % 86.9 % (37.0-80.0); Platelet Count 239 K/mm3 (142-424); Red Blood Count 4.21 M/mm3 (4.20-5.40); Red Cell Distribution Width 13.6 % (11.5-17.5)
[2024-01-03 08:32] VITALS: BP 130/79; PULSE 120; RESP 31; O2SAT 97
[2024-01-03 08:32] LABS: MANUAL DIFFERENTIAL MANUAL DIFFERENTIAL (MANUAL DIFF)
[2024-01-03 08:34] LABS: Alanine Aminotransferase 20 U/L (12-78); Albumin Level 4.9 g/dl (3.5-5.0); Albumin/Globulin Ratio 1.5 (1.1-1.8); Alkaline Phosphatase 73 U/L (38-126); Anion Gap 12.8 mEq/L (5-15); Aspartate Amino Transferase 27 U/L (14-36); Bilirubin,Total 0.7 mg/dl (0.2-1.3); Blood Urea Nitrogen 12 mg/dl (7-17); Calcium 9.5 mg/dl (8.4-10.2); Carbon Dioxide 25 mmol/L (22.0-30.0); Chloride 105 mmol/L (98-107); Estimated Glomerular Filt Rate 103 ml/min (>60); GFR (African American) 124 ML/MIN (>60); Globulin 3.2 g/dL (1.3-3.2); Glucose 102 mg/dl (74-100); Potassium 3.8 mmoL/L (3.5-5.1); Sodium 139 mmol/L (136-145); Total Protein,Serum 8.1 g/dl (6.3-8.2)
[2024-01-03 08:52] LABS: Lymphocytes % 5 % (10-50); Monocytes % 1 % (2-9); Neutrophils % 94 % (42-76); Platelet Estimate Normal; RBC Morphology Normal; Total Cells Counted 100; Troponin I < 0.01 ng/ml (0.00-0.034)
[2024-01-03 08:57] LABS: Coronavirus 19, PCR Detected (NotDetected)
[2024-01-03] MEDS: LACTATED RINGERS 1000ML 1,000 ML 999 ML IV (09:20)
[2024-01-03] MEDS: ONDANSETRON 4MG ODT 4 MG SL (09:20)
[2024-01-03 10:00] VITALS: BP 107/80; PULSE 108; RESP 18; TEMP 38.1; O2SAT 100
== END 2024-01-03 10:00 | disposition home or self-care (01) ==
PROVIDERS: Emergency Provider Emergency Medicine; PCP Nurse Practitioner Family
DX: U07.1 COVID-19 (principal); R07.89 Other chest pain; R00.0 Tachycardia, unspecified; R11.0 Nausea
CPT/HCPCS: 71046; 80050; 80053; 84484; 85007; 85025; 85378; 87636; 93005; 96360; 99284; J7120

== ENCOUNTER 2024-02-13 16:13 | Emergency (ER) | payer BC, SELFPAY ==
[2024-02-13 17:38] VITALS: BP 116/77; PULSE 76; RESP 16; TEMP 36.9; O2SAT 100; BMI 29.5
--- NOTE | 2024-02-13 17:40 | EXP.UTC ---
Discharge Plan Disposition Patient Disposition: Home, Self-Care Condition: Good Prescriptions Prescriptions: New dicyclomine 10 mg capsule 10 mg PO TID PRN (Reason: abdominal pain/cramping) Qty: 12 0RF No Action escitalopram oxalate [Lexapro] 10 mg tablet 10 mg PO DAILY Qty: 30 1RF ondansetron 4 mg Tablet,Disintegrating 4 mg PO Q8H PRN (Reason: Nausea) Qty: 12 0RF ondansetron 4 mg tablet,disintegrating 4 mg PO Q6 PRN (Reason: nausea and vomiting) 3 Days Qty: 12 0RF Referrals Follow up/Referrals: Dilcia Quinonez APRN [Primary Care Provider] - See instructions Activity Restrictions/Add. Instructions Additional Instructions/Restrictions: Take Bentyl as prescribed Follow up with your Family Doctor as discussed Straight to ER if any life threateing symptoms Clinical Impressions Clinical Impression: Stomach cramps Instructions Patient Instructions: Dicyclomine, Acute Abdominal Pain Print Language Print Language: Slovenian Discharge ED Provider: Kenyetta Osuna [facility] HPI General Stated complaint: nausea,abd cramps Mode of Arrival: Ambulatory Source of Information: Patient Limitations: No Limitations Time Seen by Provider: 02/13/24 17:40 Description of Symptoms (Recalled from Triage Doc. by RN): Patient reports vomiting and stomach cramps since Tuesday. HEENT Symptoms (Recalled from RN notes): No Resp Symptoms (Recalled from RN notes): No Skin Symptoms (Recalled from RN notes): No MS Symptoms (Recalled from RN notes): No Functional Status (Recalled from RN notes): wnl History of Present Illness Provider Complaint: Patient states that last Tuesday states that she had some vomiting and cramping States that normally she has a bowel movement about once a week and since the episode of vomiting she has had several loose bowel movements a day and some cramping before she goes States that she hasnt had any more vomiting just cramping before she has a bowel movement and randomly Related Data Previous Rx's ?Medication ?Instructions ?Recorded ondansetron 4 mg disintegrating 4 mg PO Q8H PRN Nausea #12 tabs 05/31/23 tablet escitalopram oxalate 10 mg tablet 10 mg PO DAILY #30 tabs 12/06/23 (Lexapro) ondansetron 4 mg disintegrating 4 mg PO Q6 PRN nausea and vomiting 01/03/24 tablet 3 days #12 tabs dicyclomine 10 mg capsule 10 mg PO TID PRN abdominal 02/13/24 pain/cramping #12 caps Allergies Allergy/AdvReac Type Severity Reaction Status Date / Time oxycodone AdvReac Intermediate Hives Verified 12/13/23 09:36 Worker's Comp Is this a Worker's Comp case?: No PFSH PFS Disclaimer: The information contained in this section may have been updated after the patient was seen, as this information can be updated by other users. Medical History Asthma Generalized anxiety disorder Major depressive disorder Social History Smoking Status: Never smoker alcohol intake: never substance use type: denies use current occupational status: employed Travel in the last 8 weeks: None household members: family housing: house number of children: 0 ROS Obtained: Yes All systems reviewed & no additional complaints except as documented and Yes Systems reviewed as appropriate & no additional complaints except as documented Constitutional Constitutional: Reports system reviewed and no additional complaints, except as documented, Denies body ache, Denies chills and Denies fever(s) ENT Ears, Nose, Mouth, and Throat: Reports system reviewed and no additional complaints, except as documented and Reports as per HPI Cardiovascular Cardiovascular: Reports system reviewed and no additional complaints, except as documented and Reports as per HPI Respiratory Respiratory: Reports system reviewed and no additional complaints, except as documented and Reports as per HPI Gastrointestinal Gastrointestingal: Reports
[2024-02-13 17:55] VITALS: BP 116/77; PULSE 76; RESP 16; TEMP 36.9; O2SAT 100
== END 2024-02-13 18:00 | disposition home or self-care (01) ==
PROVIDERS: Emergency Provider Nurse Practitioner; PCP Nurse Practitioner Family
DX: R11.2 Nausea with vomiting, unspecified (principal); R25.2 Cramp and spasm
CPT/HCPCS: 99212; 99214; G0463

== ENCOUNTER 2024-03-30 07:15 | Outpatient (CLI) | payer BC, SELFPAY ==
--- NOTE | 2024-03-30 07:16 | US_ITS ---
PROCEDURE: US TRANSVAGINAL CLINICAL INDICATION: pelvic pain ,check IUD placement, ovarian cyst COMPARISON: US US TRANSVAGINAL from 05/07/2021 FINDINGS: Transvaginal sonographic images of the pelvis were obtained. UTERUS: 8.5cm x 4.9 cmx 3.4cm with a combined endometrial thickness of 2.8mm. There is an IUD within the uterine cavity but it appears to be in the lower uterine segment. There is a small amount of fluid in the cervix. LEFT OVARY: 1.2cmx2.1cmx2.0cm with a volume of 2.6ml. There are number of small follicles within the left ovary. RIGHT OVARY: 3.2cmx 2.7 cmx2.2cm with a volume of 10.2ml. There is a follicle measuring 2.0 cm x 1.3 cm x 2.0 cm. There is a 2nd small follicle measuring 0.9 cm. Both ovaries are seen and appear normal. Doppler flow to both ovaries are seen. There is a small amount of fluid in the cul-de-sac. There is a separate cystic area within the cul-de-sac that measures 3.1 cm. IMPRESSION: 1. Anteverted uterus normal in shape and size. 2. There is an IUD within the uterine cavity in the lower uterine segment. 3. Both ovaries are seen and appear normal. There is a dominant follicle in the right ovary measuring 2.0 cm. 4. There is a small amount of fluid in the cul-de-sac. There is a separate, small simple cyst within the cul-de-sac that measures 3.1 cm. Dictated by: Sascha Beard MD 03/30/2024 13:36 Sascha Beard MD in [place] 03/30/2024 13:36
== END 2024-03-30 23:59 | disposition home or self-care (01) ==
LOC: RAD 07:16
PROVIDERS: PCP Nurse Practitioner Family; Visit Provider Nurse Practitioner Obstetrics & Gynecology
DX: R10.2 Pelvic and perineal pain (principal); N83.209 Unspecified ovarian cyst, unspecified side; Z97.5 Presence of (intrauterine) contraceptive device
CPT/HCPCS: 76830

== ENCOUNTER 2024-06-01 08:42 | Emergency (ER) | payer BC, SELFPAY ==
[2024-06-01] VITALS (7 sets, daily range): BP systolic 109–124; BP diastolic 56–82; PULSE 70–105; RESP 16; TEMP 36.7–36.8; O2SAT 97–100; BMI 29.4
--- NOTE | 2024-06-01 08:56 | PC.NURSE ---
DR ASTUDILLO AT BEDSIDE
--- NOTE | 2024-06-01 08:58 | CT_ITS ---
FINAL REPORT TECHNIQUE: Postcontrast axial images through the abdomen and pelvis were performed. This study was performed with techniques to keep radiation doses as low as reasonably achievable, (ALARA). Individualized dose reduction techniques using automated exposure control or adjustment of mA and/or kV according to the patient's size were employed. CLINICAL HISTORY: RLQ pain, possible appendicitis vs rupture cyst FINDINGS: Abdomen: The lung bases are clear. The liver is normal in size and attenuation. The spleen is unremarkable. The adrenals are normal. The pancreas is unremarkable. The kidneys enhance appropriately. The aorta is normal in caliber. No free fluid or adenopathy is identified. No findings for mechanical bowel obstruction are identified. Pelvis: The appendix is unremarkable. The urinary bladder is unremarkable. There is a small to moderate amount of free fluid in the lower pelvis. There is a 3.7 cm probable left ovarian cyst. There is a questionable corpus luteum cyst on the right. An IUD is seen in the uterus. There is a small umbilical hernia containing fat. IMPRESSION: Normal appendix. Small to moderate pelvic free fluid. Probable left ovarian cyst. Question corpus luteum cyst on the right. Reviewed, Interpreted and Dictated by Bryson Dalal III, MD Transcribed by Tania Alvarez Authenticated and [facility]
--- NOTE | 2024-06-01 09:00 | ED_ITS ---
Discharge Plan Disposition Patient Disposition: Home, Self-Care Condition: Good Prescriptions Prescriptions: No Action escitalopram oxalate [Lexapro] 20 mg tablet 20 mg PO DAILY Qty: 30 1RF Saxenda 3 mg/0.5 mL (18 mg/3 mL) pen injector SQ Mirena 21 mcg/24hr (up to 8 yrs) 52 mg intrauterine device 1 device intrauterine ONCE Referrals Follow up/Referrals: Dilcia Quinonez APRN [Primary Care Provider] - See instructions Activity Restrictions/Add. Instructions Additional Instructions/Restrictions: Follow-up with your primary care physician as needed. You can take NSAIDs, such as ibuprofen, to help with symptoms. You can also take Tylenol to help with symptoms. If you develop any new or worsening symptoms, or if you become concerned for your health for any reason, return to the emergency department for evaluation Clinical Impressions Clinical Impression: Abdominal pain, RLQ, Nausea, Ovarian cyst rupture Stand Alone Forms Stand Alone Forms: Work/School Release Instructions Patient Instructions: DI for Acute Abdominal Pain Print Language Print Language: Mauritanian Discharge ED Provider: Alfred Allen Adult HPI General Chief complaint: Abdominal Pain Stated complaint: abd pain Time Seen by Provider: 06/01/24 08:53 Mode of Arrival: Ambulatory Source of Information: Patient Limitations: No Limitations Description of Symptoms (Recalled from ER Triage Doc. by RN): pt reports feeling nauseated yesterday. Then around 0200 she woke up with severe RLQ pain that was sharp and 9/10. pt states the pain has been somewhat intermittant and is a 5/10 now. pt is tender to palpation in her RLQ. last BM 05/30. LMP unknown due to IUD. pt took 1GM of tylenol around 0730. pt has a hx of ovarian cysts and reports this pain is similar. pt denies urinary symptoms, chest pain or SOA. History of Present Illness HPI narrative: Haley Smith is a 23-year-old female with no significant past medical history who states that she was woken up from sleep at 0200 with lower abdominal pain that has since migrated to her right lower quadrant. She describes as sharp. She took extra strength Tylenol with some mild improvement in her symptoms. She states that she has been mildly nauseated with it but denies any vomiting or diarrhea. She denies any dysuria or hematuria. She notes that she has a Mirena IUD and has not had any vaginal bleeding. She states that she has a history of ovarian cysts and this feels similar to previous ruptured cysts. She denies any chest pain, shortness of breath or fever. She denies any abdominal surgeries. Related Data Home Medications ?Medication ?Instructions ?Recorded ?Confirmed liraglutide (weight loss) 3 mg/0.5 mg SQ 03/28/24 05/10/24 mL (18 mg/3 mL) subcut pen injector (Saxenda) levonorgestrel (Mirena) 1 device intrauterine ONCE 04/12/24 05/10/24 Previous Rx's ?Medication ?Instructions ?Recorded escitalopram oxalate 20 mg tablet 20 mg PO DAILY #30 tabs 04/11/24 (Lexapro) Allergies Allergy/AdvReac Type Severity Reaction Status Date / Time oxycodone AdvReac Intermediate Hives Verified 06/01/24 09:00 [facility] Disclaimer: The information contained in this section may have been updated after the patient was seen, as this information can be updated by other users. Medical History Asthma Major depressive disorder Generalized anxiety disorder Social History (Updated 05/10/24 @ 15:43 by Sascha Beard MD) Smoking Status: Never smoker alcohol intake: never substance use type: denies use current occupational status: employed Travel in the last 8 weeks: None household members: family housing: house number of children: 0 Have you lived/traveled outside [place] in past 30 days?: No Contact w/someone who lives/traveled outside US past 30 days?: No Exposure to someone with infectious disease in past 14 days?: No Do you have a fever (greater than 100.4 F or 38 C)?: No Have you tested positive for COVID-19: No Exposed to someone with COVID-19 in past 14 days?: No Do you have a sore throat?: No Do you have a cough?: No Do you have any weakness?: No Do you have any diarrhea?: No Are you experiencing any unusual bleeding?: No Do you have any muscle aches/pain?: No Do you have any abdominal pain?: Yes Are you experiencing loss of taste or smell?: No Other Medical History Have you received the Flu Vaccine for this season: No Have you received the Pneumonia Vaccine: No ROS Obtained: Yes Systems reviewed as appropriate & no additional complaints except as documented Physical Exam General General appearance: alert and in no apparent distress Head Head exam: atraumatic Eye Eye exam: Present normal appearance ENT ENT exam: Present normal external ear exam Neck Neck exam: Present full ROM Chest Chest inspection: Present symmetric chest wall rise Respiratory Respiratory exam: Present normal lung sounds bilaterally; Absent respiratory distress Cardiovascular Cardiovascular exam: Present regular rate and normal rhythm Abdominal Exam Abdominal exam: Present soft, tenderness (RLQ with guarding, positive Rovsing, positive horton sign, positive psoas sign) and guarding Abdominal tenderness: Present RLQ Extremities Exam Extremities exam: Present normal inspection Back Exam Back exam: Present normal inspection Neurological Exam Neurological exam: Present alert and oriented X3 Psychiatric Psychiatric exam: Present normal affect Skin Skin exam: Present warm and dry Medical Decision Making Medical Records Screening: Per USPSTF and CDC recommendations, given the prevalence of disease in our region, it is our hospital?s policy to screen for HIV and viral Hepatitis for all patients aged 18 and over and those with ongoing risk factors. Jeremy Inquiry Pt receiving controlled substance: No Vital Signs: 06/01/24 08:48 06/01/24 08:54 06/01/24 09:01 Temperature 98.2 F Temperature Source Oral Pulse Rate 105 H 90 Pulse Rate [Left] 89 Respiratory Rate 16 Blood Pressure 115/79 115/82 Blood Pressure [Right Arm] 115/79 Blood Pressure Mean [Right Arm] 91 Blood Pressure Source Blood Pressure Source [Right Arm] Automatic Cuff Blood Pressure Position [Right Arm] Sitting 02 Sat by Pulse Oximetry 99 99 98 Oxygen Delivery Method Room Air Room Air Room Air 06/01/24 10:00 06/01/24 10:30 06/01/24 11:00 Temperature Temperature Source Pulse Rate 75 77 84 Pulse Rate [Left] Respiratory Rate Blood Pressure 118/72 124/71 109/56 L Blood Pressure [Right Arm] Blood Pressure Mean [Right Arm] Blood Pressure Source Blood Pressure Source [Right Arm] Blood Pressure Position [Right Arm] 02 Sat by Pulse Oximetry 100 100 100 Oxygen Delivery Method Room Air Room Air Room Air 06/01/24 11:25 Temperature 98.0 F Temperature Source Oral Pulse Rate 70 Pulse Rate [Left] Respiratory Rate 16 Blood Pressure 123/75 Blood Pressure [Right Arm] Blood Pressure Mean [Right Arm] Blood Pressure Source Automatic Cuff Blood Pressure Source [Right Arm] Blood Pressure Position [Right Arm] 02 Sat by Pulse Oximetry Oxygen Delivery Method Room Air Lab Data Lab Results 06/01/24 08:46: Urine Color Yellow, Urine Appearance Clear, Urine pH 8.0, Ur Specific [place] 1.025, Urine Protein Negative, Urine Glucose (UA) Negative, Urine Ketones Negative, Urine Blood Negative, Urine Nitrate Negative, Urine Bilirubin Negative, Urine Urobilinogen 1.0, Ur Leukocyte Esterase Negative, Urine RBC None, Urine WBC None, Ur Squamous Epith Cells None, Urine Bacteria None 06/01/24 08:50: WBC 6.2, RBC 4.72, Hgb 14.4, Hct 42.3, MCV 89.5, MCH 30.4, MCHC 34.0, RDW 13.1, Plt Count 285, MPV 6.8 L, Neut % (Auto) 71.8, Lymph % (Auto) 21.9, [place] % (Auto) 4.3, Eos % (Auto) 1.3, Baso % (Auto) 0.7, Neut # (Auto) 4.4, Lymph # (Auto) 1.4, [place] # (Auto) 0.3, Eos # (Auto) 0.1, Baso # (Auto) 0.0, Sodium 142, Potassium 4.1, Chloride 107, Carbon Dioxide 29, Anion Gap 10.1, BUN 14, Creatinine 0.70, Estimated Creat Clear 147, Estimated GFR 103, Est GFR ( Amer) 124, Glucose 93, Lactate 0.8, Calcium 9.5, Total Bilirubin 0.6, AST 35, ALT 19, Alkaline Phosphatase 73, Total Protein 8.3 H, Albumin 5.1 H, Globulin 3.2, Albumin/Globulin Ratio 1.6, Lipase 68, Serum HCG, Qual Negative 06/01/24 08:50 06/01/24 08:50 Orders (Tests/Meds): ED MEDICATIONS Discontinued Medications Generic Name Dose Route Start Last Admin Trade Name Freq PRN Reason Stop Dose Admin Iopamidol 75 ml 06/01/24 09:32 06/01/24 09:36 Iopamidol-370 (76%);100ml Bottle IV 06/01/24 09:33 75 ml ONCE ONE Administration Ketorolac Tromethamine 15 mg 06/01/24 08:58 06/01/24 09:12 Ketorolac 30mg/Ml Vial IV 06/01/24 08:59 15 mg ONCE ONE Administration Ondansetron HCl 4 mg 06/01/24 08:58 06/01/24 09:12 Ondansetron 4mg/2ml Vial IV 06/01/24 08:59 4 mg ONCE ONE Administration Sodium Chloride 10 ml 06/01/24 09:01 Sodium Chloride 0.9% 10ml Flush Syringe IV 07/01/24 09:00 NEEDED PRN Maintain IV Site Sodium Chloride 10 ml 06/01/24 09:32 06/01/24 09:35 Sodium Chloride 0.9% 10ml Syr (Rad Only) IV 06/01/24 09:33 10 ml ONCE ONE Administration ORDERS Category Date Time Status CT abdomen pelvis w con Stat Cat Scan 06/01/24 08:58 Completed CBC w/Auto Diff [Complete Blood Count Auto Diff] Stat Lab 06/01/24 08:50 Completed CMP [Comprehensive Metabolic Panel] Stat Lab 06/01/24 08:50 Completed HIV (1&2) Antibody Rapid Stat Lab 06/01/24 08:50 Received Hep C Ab with Reflex to RNA Stat Lab 06/01/24 08:50 Received Lactic Acid Stat Lab 06/01/24 08:50 Completed Lipase Stat Lab 06/01/24 08:50 Completed Serum [HCG Qualitative, Serum] Stat Lab 06/01/24 08:50 Completed UA [Urinalysis and Microscopic] Stat Lab 06/01/24 08:46 Completed Medical Decision Narrative: Haley Smith is a 23-year-old female with no significant past medical history presents to the emergency department for complaints of sudden onset lower abdominal pain that has since migrated to the right lower quadrant with associated nausea. She notes that she has had ovarian cyst in the past and this feels similar. On arrival, patient is hemodynamically stable, in no acute respiratory distress, afebrile and not tachycardic. Physical exam demonstrated right lower quadrant tenderness to palpation with guarding as well as positive Rovsing sign, positive psoas sign. Differential diagnosis includes but is not limited to: Ruptured ovarian cyst, appendicitis, ectopic , urinary tract infection, constipation, ovarian torsion, among others. Patient's workup in the emergency department included: CT abdomen pelvis with IV contrast, CMP, lipase, CBC with differential, urinalysis, lactic acid, qualitative test, and patient was treated with IV Toradol 15 mg as well as 4 mg of IV Zofran for nausea Patient's workup noted to have no leukocytosis, no anemia, CMP unremarkable nonactionable with electrolytes within normal limits. Liver enzymes within normal limits. No elevation in bilirubin. Negative test, urine without evidence of infection. CT abdomen pelvis with IV contrast operative by me personally prior to official radiology read. No inflammation or fat stranding surrounding the appendix or enlargement of the appendix. Radiology report is consistent with possible ruptured ovarian cyst as there is small amount of free fluid within the pelvis but no evidence of appendicitis. See radiology report for final details. On reassessment, patient remained stable. Her symptomatology is most consistent with ruptured ovarian cyst given her negative CT scan for appendicitis. She was instructed to take NSAIDs at home for symptomatic relief. Return precautions were given. All questions were answered. She demonstrated understanding and was in agreement this plan. She was then discharged from the emergency department in stable condition. Critical Care Critical Care Time Critical Care Time: No
[2024-06-01] MEDS: ONDANSETRON 4MG/2ML VIAL 4 MG IV (09:12)
[2024-06-01] MEDS: KETOROLAC 30MG/ML VIAL 15 MG IV (09:12)
[2024-06-01 09:15] LABS: Microscopic, Urine URINE MICROSCOPIC (MICROSCOPIC)
[2024-06-01 09:16] LABS: Albumin Level 5.1 g/dl (3.5-5.0); Chloride 107 mmol/L (98-107); Sodium 142 mmol/L (136-145)
[2024-06-01 09:17] LABS: Appearance,Urine CLEAR (Clear); Bilirubin,Urine Negative (Negative); Blood, Urine Negative (Negative); Color,Urine YELLOW (Yellow); Glucose,Urine (UA) Negative (Negative); Ketones,Urine Negative (Negative); Leukocyte Esterase,Urine Negative (Negative); Nitrate,Urine Negative (Negative); Protein,Urine Negative (Negative); Specific Gravity, Urine 1.025 (1.005-1.030)
[2024-06-01 09:17] LABS: Potassium 4.1 mmoL/L (3.5-5.1)
[2024-06-01 09:18] LABS: HCG Qualitative, Serum Negative (Negative)
[2024-06-01 09:19] LABS: Alanine Aminotransferase 19 U/L (12-78); Albumin/Globulin Ratio 1.6 (1.1-1.8); Alkaline Phosphatase 73 U/L (38-126); Anion Gap 10.1 mEq/L (5-15); Aspartate Amino Transferase 35 U/L (14-36); Bilirubin,Total 0.6 mg/dl (0.2-1.3); Blood Urea Nitrogen 14 mg/dl (7-17); Carbon Dioxide 29 mmol/L (22.0-30.0); Creatinine Clearance Estimated 147 mL/min (50-200); Estimated Glomerular Filt Rate 103 ml/min (>60); GFR (African American) 124 ML/MIN (>60); Globulin 3.2 g/dL (1.3-3.2); Lactic Acid 0.8 mmol/L (0.7-2.1); Total Protein,Serum 8.3 g/dl (6.3-8.2)
[2024-06-01 09:20] LABS: Calcium 9.5 mg/dl (8.4-10.2); Glucose 93 mg/dl (74-100); Lipase 68 U/L (23-300)
[2024-06-01 09:23] LABS: Basophils % 0.7 % (0.1-2.0); Eosinophils # 0.1 K/mm3 (0.0-0.4); Eosinophils % 1.3 % (0.1-12.0); Hematocrit 42.3 % (37.0-47.0); Hemoglobin 14.4 g/dL (12.2-16.2); Lymphocytes # 1.4 K/mm3 (0.7-4.5); Lymphocytes % 21.9 % (10-50); Mean Corpuscular Hemoglobin 30.4 pg (27.0-31.2); Mean Corpuscular Volume 89.5 fl (81-99); Mean Platelet Volume 6.8 fl (7.4-10.4); Monocytes # 0.3 K/mm3 (0.1-1.0); Monocytes % 4.3 % (1.7-9.3); Neutrophils # 4.4 K/mm3 (1.8-7.8); Neutrophils % 71.8 % (37.0-80.0); Platelet Count 285 K/mm3 (142-424); Red Blood Count 4.72 M/mm3 (4.20-5.40); Red Cell Distribution Width 13.1 % (11.5-17.5); White Blood Count 6.2 K/mm3 (4.8-10.8)
--- NOTE | 2024-06-01 09:28 | PC.NURSE ---
Patient to radiology
[2024-06-01] MEDS: SODIUM CHLORIDE 0.9% 10ML SYR (RAD ONLY) 10 ML IV (09:35)
--- NOTE | 2024-06-01 09:35 | PC.NURSE ---
Back from radiology
[2024-06-01] MEDS: IOPAMIDOL-370 (76%);100ML BOTTLE 75 ML IV (09:36)
--- NOTE | 2024-06-01 10:45 | PC.NURSE ---
Rounded on pt, no new complaints at this time. no needs voiced. call wseet in reach.
[2024-06-01 16:37] LABS: HIV Combo NEGATIVE (Negative)
[2024-06-02 06:13] LABS: HCV Ab Non Reactive (Non Reactive)
== END 2024-06-01 11:27 | disposition home or self-care (01) ==
PROVIDERS: Emergency Provider Student in an Organized Health Care Education/Training Program; PCP Nurse Practitioner Family
DX: N83.209 Unspecified ovarian cyst, unspecified side (principal); R10.31 Right lower quadrant pain; R11.0 Nausea
CPT/HCPCS: 74177; 80053; 81001; 83605; 83690; 84703; 85025; 86803; 87389; 96374; 96375; 99285; J1885; J2405; Q9967

== ENCOUNTER 2024-08-31 09:58 | Outpatient (CLI) | payer BC, SELFPAY ==
--- NOTE | 2024-08-31 10:02 | US_ITS ---
PROCEDURE: US TRANSVAGINAL CLINICAL INDICATION: IUD placement COMPARISON: US US TRANSVAGINAL from 03/30/[address] ABDOMEN PELVIS W CON from 06/01/2024 FINDINGS: Transvaginal sonographic images of the pelvis were obtained. UTERUS: 7.7 cm x 5.1cmx 3.2cm with a combined endometrial thickness of 2.7mm. There is an IUD within the uterine cavity in the correct position. LEFT OVARY: 5.0cmx4.1cmx2.6cm with a volume of 28.3ml. There is a follicle in the left ovary measuring 3.2 cm x 3.1 cm x 1.6 cm. RIGHT OVARY: 3.5cmx 2.4cmx1.3cm with a volume of 5.8ml. Both ovaries are seen and appear normal. Doppler flow to both ovaries are seen. There is a small amount of fluid in the cul-de-sac. IMPRESSION: 1. Anteverted uterus normal in shape and size. There is an IUD within the uterine cavity in the correct position. The endometrium is thin. 2. Both ovaries are seen and appear normal. There is a 3.2 cm follicle in the left ovary. 3. There is a small amount of fluid in the cul-de-sac. Dictated by: Sascha Beard MD 09/01/2024 09:14 Sascha Beard MD in [facility] 09/01/2024 09:14
== END 2024-08-31 23:59 | disposition home or self-care (01) ==
LOC: RAD 10:00
PROVIDERS: PCP Nurse Practitioner Family; Visit Provider Nurse Practitioner Obstetrics & Gynecology
DX: Z30.430 Encounter for insertion of intrauterine contraceptive device (principal)
CPT/HCPCS: 76830